=== PATIENT | female | born 1935 | race Caucasian/White ===

== ENCOUNTER 2016-08-09 14:32 | Emergency (ER) | payer MEDICARE, OTHER ==
--- NOTE | 2016-08-09 15:51 | CR ---
CLINICAL HISTORY: 80-year-old hypertensive female with coronary artery disease and low-grade fever. INTERPRETATION: No acute new cardiopulmonary abnormality identified in the interval since November 09 12 exam. Upright AP portable chest film reveals normal cardiac silhouette without alveolar edema or dependent effusion. No new lung mass, hilar lymphadenopathy or focal lobar pneumonia. No atelectasis/collapse.
[2016-08-09 15:52] LABS: CHLORIDE,CL 102 mmol/L (101-111); SODIUM,NA 138 mmol/L (135-145)
[2016-08-09 16:05] VITALS: BP 147/50
--- NOTE | 2016-08-10 01:36 | ER ---
SUBJECTIVE: The patient is an 80-year-old female, who has very vague symptoms, she had felt a little mildly sweaty, she had some mild nausea that has now resolved. Upon arrival and evaluation, she states she really feels quite back to normal. She has no pain. No chest pain. No shortness of breath. No fevers or chills. No bowel or bladder changes. No dysuria, hematuria, melena, BRBPR, constipation, or diarrhea. No abdominal pain or back pain. No headache, syncope, or near syncope. No ENT issues. She states she did not want to even come in, but with her mild symptoms that have now resolved, her family felt she should since she had an ND some years ago and she did not feel that either, and they were concerned maybe she was having some things that she was not fully feeling. Again, the patient now has no complaints and states she just felt it caught under the weather. Denies any recent illness. PAST MEDICAL HISTORY: Significant for CAD, tonsillectomy, hypertension, ND, carotid stents, removal of appendix, cholecystectomy, colonoscopy, hysterectomy, back pain, osteoarthritis, carpal tunnel syndrome, peripheral neuropathy. She wears a brace on her right wrist chronically because of chronic carpal tunnel. CURRENT MEDICATIONS: Include; 1. Aspirin 81 mg p.o. daily. 2. Atenolol 25 mg p.o. at bedtime. 3. Gabapentin 100 mg p.o. b.i.d. 4. Meloxicam 7.5 mg p.o. at bedtime. 5. Nitrostat 0.4 mg p.o. daily. ALLERGIES: She is allergic to alcohol, does not recall why. REVIEW OF SYSTEMS: No substance abuse. She has family around to care for herself. REVIEW OF SYSTEMS: No fevers or chills. She had some vague weakness resolved, some vague nausea is also resolved, felt this attached sweaty for a while that was resolved. No other symptoms. No flu symptoms. No chest pain or shortness of breath. No wheezing. No neck pain. No HEENT issues, headache, syncope, near syncope, vision changes, bowel or bladder changes, bleeding, falls, trauma, bites, stings, or rashes. Please see HPI. OBJECTIVE: Vital Signs: Stable. She is afebrile. Heart rate 67, blood pressure is 159/52, respiratory rate 16, and oxygen is 97% on room air. General: Pleasant, A and O x3. GCS of 15. Very talkative, interactive, smiling, joking, appears in no pain, nontoxic, no distress, very healthy for age. She moves easily. HEENT: She is bright-eyed. Conjunctivae are clear. HEENT exam nonremarkable. Neck: Nonremarkable. Chest: Clear and nontender. CV: RRR. Abdomen: Soft, benign. Back: No CVAT. Nontender. Good pulses at all 4 extremities. Lower Extremities: Nonremarkable. No calf tenderness. She does have a brace on her right wrist, she wears chronically. Vitals are reviewed and the telemetry shows normal sinus rhythm. No acute changes noted. She did have an EKG, it is nonremarkable for acute changes. Normal sinus rhythm. Further lab/studies show a chest x-ray was nonremarkable. CBC showed no anemia, normal white count, normal platelets, normal differential. Her CMP was also completely nonremarkable. Troponin was less than 0.02 and other cardiac enzymes nonremarkable. Liver function tests nonremarkable. Her urine was yellow, slightly cloudy, it did have 250 glucose, did have positive nitrite, negative ketones, negative blood, had negative leukocyte esterase, had many bacteria. It was sent for culture. The family states that her urine is usually normal, so this appears to be a change from that. EMERGENCY ROOM COURSE: She remained stable, pleasant, asymptomatic. I sat down and thoroughly discussed with the patient and her attendant family all of her workup including it was all excellent except that her urine was a little abnormal and we did send it for culture. I did give her multiple options including waiting until culture was back or starting treatment now. She did elect to begin treatment now. Therefore, I did give her a prescription of nitrofurantoin 100 mg one p.o. b.i.d. for 10 days. ASSESSMENT: 1. Urinary tract infection. Urine sent for culture. 2. Nausea, resolved prior to arrival. 3. Coronary artery disease with previous myocardial infarction, workup is nonremarkable at this time. PLAN: Discharge to home in care with her family. Stay in close contact with family or directly with family. Stay hydrated, continue with current medicines, fall precautions. Return for emergent issues, otherwise follow up with PCP. Prescription for nitrofurantoin 100 mg one p.o. b.i.d. x10 days. Please call PCP in 2 days to get the culture results. [facility] /[id number]
--- NOTE | 2016-09-15 09:36 | EKG ---
08/09/2016- JOSEE GREGG - EKG done on an 80-year-old female on 08/09/2016 showed sinus rhythm with heart rate of 68 beats per minute, normal intervals, T-wave changes on inferior leads III and AVF. [facility] /[id number]
== END 2016-08-09 17:44 | disposition home or self-care (01) ==
LOC: DL.ED 14:32
DX: N39.0 Urinary tract infection, site not specified (principal); I25.10 Atherosclerotic heart disease of native coronary artery without angina pectoris; I25.2 Old myocardial infarction; I10 Essential (primary) hypertension; M19.90 Unspecified osteoarthritis, unspecified site; Z98.890 Other specified postprocedural states; Z90.49 Acquired absence of other specified parts of digestive tract
CPT/HCPCS: 36415; 71010; 80053; 81001; 82550; 82553; 84484; 85025; 87086; 87088; 87186; 93005; 93010; 99283; 99285

== ENCOUNTER 2016-08-29 13:08 | Emergency (ER) | payer MEDICARE, OTHER ==
--- NOTE | 2016-08-29 13:10 | EDM.PDOC ---
ED UPPER BACK/NECK PAIN/INJURY - General Chief Complaint: Neck Problem Stated Complaint: NECK PAIN [id number] Time Seen by Provider: 08/29/16 13:10 Source of Information: Reports: Patient, Old records, RN, RN notes reviewed History Limitations: Reports: No limitations - History of Present Illness INITIAL COMMENTS - FREE TEXT/NARRATIVE: Complaining of neck pain and muscle spasms x2 days. Denies injury. Patient states he woke up with symptoms and hasn't got better. She had used ice and heat. Has an hour or so relief after her regular schedule Gabapentin 100mg b.i.d. Patient was concerned about the cause of her pain because her FL more than 5 yeers ago did not cause any chest pain but she did have neck pain. Symptom Onset Date: 08/27/16 Location: Reports: other (neck) Quality: Reports: Ache Severity: severe Associated Symptoms: Reports: Denies symptoms - Related Data Allergies/ADRs: Allergies Allergy/AdvReac Type Severity Reaction Status Date / Time alcohol Allergy Cannot Verified 11/24/15 13:39 Remember Sulfa (Sulfonamide Allergy Cannot Verified 08/29/16 13:30 Antibiotics) Remember tramadol Allergy Airway Verified 08/29/16 13:30 Tightness Home Meds: Home Meds Aspirin 81 mg PO DAILY 08/09/16 [History] Atenolol 25 mg PO BEDTIME 08/09/16 [History] Gabapentin [Gabapentin] 100 mg PO BID 08/09/16 [History] Meloxicam [Mobic] 7.5 mg PO BEDTIME 08/09/16 [History] Nitroglycerin [Nitrostat] 0.4 mg PO DAILY 08/09/16 [History] Past Medical History HEENT History: Reports: Impaired vision Cardiovascular History: Reports: CAD, Hypertension Musculoskeletal History: Reports: Back pain, chronic, Osteoarthritis Neurological History: Reports: Neuropathy, peripheral - Past Surgical History HEENT Surgical History: Reports: Tonsillectomy Cardiovascular Surgical History: Reports: Carotid stents GI Surgical History: Reports: Appendectomy, Cholecystectomy, Colonoscopy Female Surgical History: Reports: Hysterectomy Musculoskeletal Surgical History: Reports: Other (see below) Other Musculoskeletal Surgeries/Procedures:: carpal tunnel Social & Family History - Family History Family Medical History: Noncontributory - Tobacco Use Smoking Status *Q: Never Smoker Second Hand Smoke Exposure: No - Caffeine Use Caffeine Use: Reports: Coffee, Soda, Tea - Recreational Drug Use Recreational Drug Use: No ED ROS GENERAL - Review of Systems Review Of Systems: ROS reveals no pertinent complaints other than HPI. ED EXAM, UPPER BACK/NECK PAIN - Physical Exam Exam: See Below Exam Limited By: No limitations General Appearance: alert, WD/WN, no apparent distress Eye Exam: bilateral eye: normal inspection Ears Exam: normal external exam, normal canal, hearing grossly normal, normal TMs Nose Exam: normal inspection, normal mucousa, no blood Throat/Mouth Exam: Normal inspection Head Exam: atraumatic, normocephalic Neck Exam: other (ROM limited rotation to left due to pain and spasms.) Cardiovascular/Respiratory: regular rate, rhythm, no M/R/G, normal peripheral pulses, no JVD, normal breath sounds, no respiratory distress GI/Abdominal: normal bowel sounds, soft, non tender, no organomegaly, no distention, no abnormal bruit, no mass Back Exam: normal inspection, full range of motion, NT Extremities: other (muscle spasms and tenderness at bilateral trapezius muscles left greater than right. 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, no motor/sensory deficits, alert, normal mood/affect, oriented x 3 Psychiatric: normal affect, normal mood Skin Exam: Normal color, Warm/dry Lymphatic: no adenopathy EKG INTERPRETATION EKG Date: 08/29/16 Time: 13:42 Rhythm: other (sinus rhythm) Rate (beats/min): 68 [place]: LAD-left axis deviation (borderline) P-wave: present QRS: normal ST-T: other (borderline T abnormality) QT: normal Comparison: no change Course - Vital Signs Last Recorded V/S: Last Vital Signs Temp 36.0 C 08/29/16 13:25 Pulse 63 08/29/16 13:25 Resp 16 08/29/16 13:25 BP 167/58 H 08/29/16 13:25 Pulse Ox 98 08/29/16 13:25 - Orders/Labs/Meds Orders: Active Orders 24 hr Category Date Time Status EKG 12 Lead [EKG Documentation Completion] [RC] STAT Care 08/29/16 13:44 Active Labs: Laboratory Tests 08/29/16 08/29/16 Range/Units 13:53 13:53 WBC 8.7 (5.0-10.0) 10^3/uL RBC 4.42 (4.2-5.4) 10^6/uL Hgb 13.6 (12.0-16.0) g/dL Hct 41.1 (37.0-47.0) % MCV 93.0 (80-100) fL MCH 30.8 (27.0-34.0) pg MCHC 33.1 (33.0-35.0) g/dL Plt Count 321 (150-450) 10^3/uL Neut % (Auto) 57.1 (42.2-75.2) % Lymph % (Auto) 26.5 (20.5-50.1) % [place] % (Auto) 12.1 H (2-8) % Eos % (Auto) 3.8 H (1.0-3.0) % Baso % (Auto) 0.5 (0.0-1.0) % Sodium 139 (135-145) mmol/L Potassium 4.9 (3.6-5.0) mmol/L Chloride 102 (101-111) mmol/L Carbon Dioxide 28.0 (21.0-31.0) mmol/L Anion Gap 13.9 BUN 18 (7-18) mg/dL Creatinine 0.6 (0.6-1.3) mg/dL Est Cr Clr Drug Dosing 52.82 mL/min Estimated GFR (MDRD) > 60 BUN/Creatinine Ratio 30.00 Glucose 183 H (74-105) mg/dL Calcium 9.0 (8.4-10.2) mg/dl Total Bilirubin 0.6 (0.2-1.0) mg/dL AST 21 (10-42) IU/L ALT 24 (10-60) IU/L Alkaline Phosphatase 76 (42-121) IU/L Troponin I < 0.02 (0.00-0.02) ng/ml Total Protein 6.5 L (6.7-8.2) g/dl Albumin 3.7 (3.2-5.5) g/dl Globulin 2.8 Albumin/Globulin Ratio 1.32 Meds: Medications Discontinued Medications Generic Name Dose Route Start Last Admin Trade Name Freq PRN Reason Stop Dose Admin Aspirin 324 mg 08/29/16 13:44 08/29/16 14:07 Aspirin PO 08/29/16 13:45 324 mg ONETIME ONE Administration - Radiology Interpretation Free Text/Narrative:: Chest x-ray: Per rad report no acute cardiopulmonary disease. Departure - Departure Time of Disposition: 15:08 Disposition: Home, Self-Care 01 Condition: fair Clinical Impression: Trapezius muscle spasm, Acute neck pain Instructions: Muscle Cramps and Spasms, [id number] Forms: ED Department Discharge Additional Instructions: Increase Gabapentin 100mg. to two tablets 3 times a day until her neck pain and spasms resolve. Deep moist heat to the area of pain. Gentle home massage to the area of muscle spasm. Follow up in 2-3 days with your primary doctor for recheck if not completely improved. - My Orders Last 24 Hours: My Active Orders 08/29/16 13:44 EKG 12 Lead [EKG Documentation Completion] [RC] STAT - Assessment/Plan Last 24 Hours: My Active Orders 08/29/16 13:44 EKG 12 Lead [EKG Documentation Completion] [RC] STAT
[2016-08-29 13:27] VITALS: BP 167/58
[2016-08-29] MEDS ORDERED: Aspirin 81 MG Tab.Chew PO ONE (13:44)
[2016-08-29 14:25] LABS: CHLORIDE,CL 102 mmol/L (101-111); SODIUM,NA 139 mmol/L (135-145)
--- NOTE | 2016-09-20 13:38 | EKG ---
08/29/2016- JOSEE GREGG - This is a standard 12-lead EKG showing normal sinus rhythm with normal DE interval and QRS duration. Normal axis. No ST-T changes. Normal EKG. [facility] /[id number] MTDD
== END 2016-08-29 15:20 | disposition home or self-care (01) ==
LOC: DL.ED 13:08
DX: M54.2 Cervicalgia (principal); M62.838 Other muscle spasm; I25.10 Atherosclerotic heart disease of native coronary artery without angina pectoris; I10 Essential (primary) hypertension; M19.90 Unspecified osteoarthritis, unspecified site; G62.9 Polyneuropathy, unspecified; M54.9 Dorsalgia, unspecified; G89.29 Other chronic pain; Z79.82 Long term (current) use of aspirin; Z79.899 Other long term (current) drug therapy; Z88.6 Allergy status to analgesic agent; Z88.2 Allergy status to sulfonamides; Z91.048 Other nonmedicinal substance allergy status
CPT/HCPCS: 36415; 71010; 80053; 84484; 85025; 93005; 99284; A9270; 93010; 99283

== ENCOUNTER 2017-02-07 20:32 | Inpatient (IN) | payer MEDICARE, OTHER ==
--- NOTE | 2017-02-07 21:27 | EDM.PDOC ---
ED HPI GENERAL MEDICAL PROBLEM - General Chief Complaint: Gastrointestinal Problem Stated Complaint: VOMITING Time Seen by Provider: 02/07/17 21:10 Source of Information: Reports: Patient, Family - History of Present Illness INITIAL COMMENTS - FREE TEXT/NARRATIVE: c/o pain to lower abdomen with vomiting and headache. Started yesterday with vomiting though out night, today just gagging. Similar but " different" to divertic episodes , nothing to drink today except sips . No urinary or respiratory c/o. Onset: Today Duration: Day(s): Associated Symptoms: Reports: Loss of Appetite, Nausea/Vomiting. Denies: Chest Pain, Fever/Chills, Weakness Headache Pain Score (Numeric/FACES): 8 - Related Data Allergies Allergy/AdvReac Type Severity Reaction Status Date / Time alcohol Allergy Cannot Verified 02/07/17 20:39 Remember Sulfa (Sulfonamide Allergy Cannot Verified 02/07/17 20:39 Antibiotics) Remember tramadol Allergy Airway Verified 02/07/17 20:39 Tightness Home Meds: Home Meds Aspirin 81 mg PO DAILY 08/09/16 [History] Atenolol 25 mg PO BEDTIME 08/09/16 [History] Gabapentin [Gabapentin] 100 mg PO BID 08/09/16 [History] Meloxicam [Mobic] 7.5 mg PO ASDIRECTED 08/09/16 [History] Nitroglycerin [Nitrostat] 0.4 mg PO DAILY 08/09/16 [History] Past Medical History HEENT History: Reports: Impaired Vision Cardiovascular History: Reports: Hypertension, Stents Gastrointestinal History: Reports: Diverticulosis Musculoskeletal History: Reports: Back Pain, Chronic, Osteoarthritis Neurological History: Reports: Neuropathy, Peripheral - Infectious Disease History Infectious Disease History: Reports: Shingles - Past Surgical History HEENT Surgical History: Reports: Tonsillectomy Cardiovascular Surgical History: Reports: Carotid Stents GI Surgical History: Reports: Appendectomy, Cholecystectomy, Colonoscopy Female Surgical History: Reports: Hysterectomy Musculoskeletal Surgical History: Reports: Carpal Tunnel, Other (See Below) Social & Family History - Family History Family Medical History: Noncontributory - Tobacco Use Smoking Status *Q: Never Smoker Second Hand Smoke Exposure: No - Caffeine Use Caffeine Use: Reports: Coffee, Soda, Tea - Recreational Drug Use Recreational Drug Use: No ED ROS GENERAL - Review of Systems Review Of Systems: See Below Constitutional: Reports: Malaise. Denies: Fever, Chills HEENT: Reports: No Symptoms, Glasses Respiratory: Reports: No Symptoms Cardiovascular: Reports: No Symptoms GI/Abdominal: Reports: Abdominal Pain (lower discomfort yesterday), Nausea, Vomiting (too many times to count yesterday, continued through night. gaggy today after any sip of liquid). Denies: Bloody Stool, Diarrhea : Reports: No Symptoms. Denies: Frequency, Urinary Retention Musculoskeletal: Reports: No Symptoms Skin: Reports: No Symptoms Neurological: Reports: Headache. Denies: Tremors, Trouble Speaking, Difficulty Walking ED EXAM, GI/ABD - Physical Exam Exam: See Below Exam Limited By: No Limitations General Appearance: Alert, Mild Distress Eyes: Bilateral: EOMI Ears: Normal External Exam Nose: Normal Inspection Throat/Mouth: Normal Inspection Head: Atraumatic, Normocephalic Neck: Normal Inspection, Supple, Full Range of Motion Respiratory/Chest: No Respiratory Distress, Lungs Clear, Normal Breath Sounds Cardiovascular: Normal Peripheral Pulses, Regular Rate, Rhythm GI/Abdominal Exam: Abnormal Bowel Sounds (active LUQ hypo active lower, no distension) Neurological: Alert, Oriented, Normal Cognition, Normal Gait, No Motor/Sensory Deficits Psychiatric: Normal Affect, Normal Mood Skin Exam: Warm, Dry, Intact, Normal Color, No Rash Course - Vital Signs Last Recorded V/S: Last Vital Signs Temp 97.6 F 02/08/17 01:14 Pulse 68 02/08/17 01:14 Resp 14 02/08/17 01:14 BP 115/49 L 02/08/17 01:14 Pulse Ox 97 02/08/17 01:14 - Orders/Labs/Meds Orders: Active Orders 24 hr Category Date Time Status CULTURE BLOOD [BC] Stat Lab 02/07/17 22:15 Results CULTURE BLOOD [BC] Stat Lab 02/07/17 22:20 Received CULTURE URINE [RM] Stat Lab 02/07/17 22:01 Received Aspirin Med 02/08/17 09:00 Active 81 mg PO DAILY Atenolol [Tenormin] Med 02/08/17 21:00 Active 25 mg PO BEDTIME Gabapentin [Neurontin] Med 02/08/17 09:00 Active 100 mg PO BID Sodium Chloride 0.9% [Normal Saline] 1,000 ml Med 02/08/17 00:15 Active IV ASDIRECTED Blood Culture x2 Reflex Set [OM.PC] Stat Oth 02/07/17 21:53 Ordered Medication Orders Acetaminophen (Tylenol) 650 mg PO Q4H PRN PRN Reason: Pain (Mild 1-3)/fever Aspirin (Aspirin) 81 mg PO DAILY [facility] Atenolol (Tenormin) 25 mg PO BEDTIME [facility] Gabapentin (Neurontin) 100 mg PO BID [facility] Heparin Sodium (Porcine) (Heparin Sodium) 5,000 units SUBCUT Q12H [facility] Sodium Chloride (Normal Saline) 1,000 mls @ 125 mls/hr IV ASDIRECTED [facility] Last Admin: 02/08/17 00:09 Dose: 125 mls/hr Levofloxacin/Dextrose 500 mg/ (Premix) 100 mls @ 100 mls/hr IV Q24H [facility] Sodium Chloride (Normal Saline) 1,000 mls @ 75 mls/hr IV ASDIRECTED [facility] Stop: 02/09/17 01:16 Insulin Aspart (Novolog) 0 unit SUBCUT QIDACANDBED [facility] PRN Reason: Protocol Morphine Sulfate (Morphine) 2 mg IVPUSH Q4H PRN PRN Reason: Pain (severe 7-10) Ondansetron HCl (Zofran) 4 mg IVPUSH Q6H PRN PRN Reason: Nausea/Vomiting Pantoprazole Sodium (Protonix Iv) 40 mg IVPUSH Q24H [facility] Last Admin: 02/08/17 02:29 Dose: 40 mg Promethazine HCl (Phenergan) 6.25 mg IM Q6H PRN PRN Reason: Nausea/Vomiting Sodium Chloride ([place] Nasal [place]) 0 ml CANELO Q2H PRN PRN Reason: Nasal congestion Labs: Laboratory Tests 02/07/17 02/07/17 02/07/17 Range/Units 20:55 20:55 22:10 WBC 15.0 H (5.0-10.0) 10^3/uL RBC 4.79 (4.2-5.4) 10^6/uL Hgb 14.3 (12.0-16.0) g/dL Hct 44.4 (37.0-47.0) % MCV 92.7 (80-100) fL MCH 29.9 (27.0-34.0) pg MCHC 32.2 L (33.0-35.0) g/dL Plt Count 405 (150-450) 10^3/uL Neut % (Auto) 74.8 (42.2-75.2) % Lymph % (Auto) 15.5 L (20.5-50.1) % [place] % (Auto) 9.0 H (2-8) % Eos % (Auto) 0.5 L (1.0-3.0) % Baso % (Auto) 0.2 (0.0-1.0) % Sodium 136 (135-145) mmol/L Potassium 3.8 (3.6-5.0) mmol/L Chloride 97 L (101-111) mmol/L Carbon Dioxide 26.0 (21.0-31.0) mmol/L Anion Gap 16.8 BUN 15 (7-18) mg/dL Creatinine 0.5 L (0.6-1.3) mg/dL Est Cr Clr Drug Dosing 62.31 mL/min Estimated GFR (MDRD) > 60 BUN/Creatinine Ratio 30.00 Glucose 222 H (74-105) mg/dL Lactic Acid (0.5-2.2) mmol/L Calcium 9.1 (8.4-10.2) mg/dl Total Bilirubin 1.3 H (0.2-1.0) mg/dL AST 24 (10-42) IU/L ALT 24 (10-60) IU/L Alkaline Phosphatase 75 (42-121) IU/L Troponin I < 0.02 (0.00-0.02) ng/ml Total Protein 7.0 (6.7-8.2) g/dl Albumin 3.9 (3.2-5.5) g/dl Globulin 3.1 Albumin/Globulin Ratio 1.26 Amylase 92 (28-100) U/L Lipase 27 (22-51) U/L Urine Color Yellow (YELLOW) Urine Appearance Slightly cloudy (CLEAR) Urine pH 5.5 (5.0-9.0) Ur Specific [place] <= 1.005 (1.005-1.030) Urine Protein Negative (NEGATIVE) Urine Glucose (UA) 100 H (NEGATIVE) Urine Ketones 15 H (NEGATIVE) Urine Occult Blood Trace-intact H (NEGATIVE) Urine Nitrite Positive H (NEGATIVE) Urine Bilirubin Negative (NEGATIVE) Urine Urobilinogen 0.2 (0.2-1.0) mg/dL Ur Leukocyte Esterase Negative (NEGATIVE) Urine RBC 0-5 /HPF Urine WBC 0-5 (0-5/HPF) /HPF Ur Epithelial Cells Few /HPF Urine Bacteria Many H (0-FEW/HPF) /HPF 02/07/17 Range/Units 22:15 WBC (5.0-10.0) 10^3/uL RBC (4.2-5.4) 10^6/uL Hgb (12.0-16.0) g/dL Hct (37.0-47.0) % MCV (80-100) fL MCH (27.0-34.0) pg MCHC (33.0-35.0) g/dL Plt Count (150-450) 10^3/uL Neut % (Auto) (42.2-75.2) % Lymph % (Auto) (20.5-50.1) % [place] % (Auto) (2-8) % Eos % (Auto) (1.0-3.0) % Baso % (Auto) (0.0-1.0) % Sodium (135-145) mmol/L Potassium (3.6-5.0) mmol/L Chloride (101-111) mmol/L Carbon Dioxide (21.0-31.0) mmol/L Anion Gap BUN (7-18) mg/dL Creatinine (0.6-1.3) mg/dL Est Cr Clr Drug Dosing mL/min Estimated GFR (MDRD) BUN/Creatinine Ratio Glucose (74-105) mg/dL Lactic Acid 1.8 (0.5-2.2) mmol/L Calcium (8.4-10.2) mg/dl Total Bilirubin (0.2-1.0) mg/dL AST (10-42) IU/L ALT (10-60) IU/L Alkaline Phosphatase (42-121) IU/L Troponin I (0.00-0.02) ng/ml Total Protein (6.7-8.2) g/dl Albumin (3.2-5.5) g/dl Globulin Albumin/Globulin Ratio Amylase (28-100) U/L Lipase (22-51) U/L Urine Color (YELLOW) Urine Appearance (CLEAR) Urine pH (5.0-9.0) Ur Specific [place] (1.005-1.030) Urine Protein (NEGATIVE) Urine Glucose (UA) (NEGATIVE) Urine Ketones (NEGATIVE) Urine Occult Blood (NEGATIVE) Urine Nitrite (NEGATIVE) Urine Bilirubin (NEGATIVE) Urine Urobilinogen (0.2-1.0) mg/dL Ur Leukocyte Esterase (NEGATIVE) Urine RBC /HPF Urine WBC (0-5/HPF) /HPF Ur Epithelial Cells /HPF Urine Bacteria (0-FEW/HPF) /HPF Meds: Medications Generic Name Dose Route Start Last Admin Trade Name Freq PRN Reason Stop Dose Admin Acetaminophen 650 mg 02/08/17 01:14 Tylenol PO Q4H PRN Pain (Mild 1-3)/fever Aspirin 81 mg 02/08/17 09:00 Aspirin PO DAILY [facility] Atenolol 25 mg 02/08/17 21:00 Tenormin PO BEDTIME [facility] Gabapentin 100 mg 02/08/17 09:00 Neurontin PO BID [facility] Heparin Sodium (Porcine) 5,000 units 02/08/17 09:00 Heparin Sodium SUBCUT Q12H [facility] Sodium Chloride 1,000 mls @ 125 mls/hr 02/08/17 00:15 02/08/17 00:09 Normal Saline IV 125 mls/hr ASDIRECTED [facility] Administration Levofloxacin/Dextrose 500 mg/ 100 mls @ 100 mls/hr 02/08/17 01:30 Premix IV Q24H [facility] Sodium Chloride 1,000 mls @ 75 mls/hr 02/08/17 01:15 Normal Saline IV 02/09/17 01:16 ASDIRECTED [facility] Insulin Aspart 0 unit 02/08/17 07:00 Novolog SUBCUT QIDACANDBED [facility] Protocol Morphine Sulfate 2 mg 02/08/17 01:14 Morphine IVPUSH Q4H PRN Pain (severe 7-10) Ondansetron HCl 4 mg 02/08/17 01:14 Zofran IVPUSH Q6H PRN Nausea/Vomiting Pantoprazole Sodium 40 mg 02/08/17 01:15 02/08/17 02:29 Protonix Iv IVPUSH 40 mg Q24H [facility] Administration Promethazine HCl 6.25 mg 02/08/17 01:14 Phenergan IM Q6H PRN Nausea/Vomiting Sodium Chloride 0 ml 02/08/17 01:36 [place] Nasal [place] CANELO Q2H PRN Nasal congestion Discontinued Medications Generic Name Dose Route Start Last Admin Trade Name Freq PRN Reason Stop Dose Admin Sodium Chloride 1,000 mls @ 500 mls/hr 02/07/17 21:30 02/07/17 21:35 Normal Saline IV 02/07/17 23:29 500 mls/hr .BOLUS ONE Administration Levofloxacin/Dextrose 500 mg/ 100 mls @ 100 mls/hr 02/08/17 01:00 02/08/17 02 :29 Premix IV 02/08/17 01:59 100 mls/hr ONETIME ONE Administration Iopamidol 75 ml 02/07/17 22:00 02/07/17 22:51 Isovue-300 (61%) IVPUSH 02/07/17 22:01 75 ml ONETIME ONE Administration - Radiology Interpretation Free Text/Narrative:: CT abdomen lower obstruction vs ileus with probable entercolitis, diverticulosis without sx of diverticulitis. - Re-Assessments/Exams Free Text/Narrative Re-Assessment/Exam: 02/08/17 00:37 Nausea improved and headache resolved following iVF administration. Departure - Departure Time of Disposition: 00:30 Disposition: Admitted As Inpatient 65 Condition: Fair Clinical Impression: Mild dehydration Bowel obstruction Qualifiers: Intestinal obstruction type: unspecified Qualified Code(s): K56.60 - Unspecified intestinal obstruction - Discharge Information - My Orders Last 24 Hours: My Active Orders 02/07/17 21:53 Blood Culture x2 Reflex Set [OM.PC] Stat 02/07/17 22:01 CULTURE URINE [RM] Stat 02/07/17 22:15 CULTURE BLOOD [BC] Stat 02/07/17 22:20 CULTURE BLOOD [BC] Stat 02/08/17 00:15 Sodium Chloride 0.9% [Normal Saline] 1,000 ml IV ASDIRECTED - Assessment/Plan Last 24 Hours: My Active Orders 02/07/17 21:53 Blood Culture x2 Reflex Set [OM.PC] Stat 02/07/17 22:01 CULTURE URINE [RM] Stat 02/07/17 22:15 CULTURE BLOOD [BC] Stat 02/07/17 22:20 CULTURE BLOOD [BC] Stat 02/08/17 00:15 Sodium Chloride 0.9% [Normal Saline] 1,000 ml IV ASDIRECTED
[2017-02-07] MEDS ORDERED: Sodium Chloride 0.9% 1,000 ML IV ONE (21:30)
[2017-02-07 21:47] LABS: CHLORIDE,CL 97 mmol/L (101-111); SODIUM,NA 136 mmol/L (135-145)
[2017-02-07] MEDS ORDERED: Iopamidol 612 MG/ML 75 ML Bottle IVPUSH ONE (22:00)
[2017-02-08] MEDS ORDERED: Sodium Chloride 0.9% 1,000 ML IV SCH (00:15)
[2017-02-08] MEDS ORDERED: Levofloxacin/Dextrose 5%-Water 500 MG in Premix Bag 1 BAG IV ONE (01:00)
[2017-02-08] MEDS ORDERED: Acetaminophen 325 MG Tab PO PRN (01:14)
[2017-02-08] MEDS ORDERED: Morphine 2 MG/ML Syringe IVPUSH PRN (01:14)
[2017-02-08] MEDS ORDERED: Promethazine 25 MG/ML SDV IM PRN (01:14)
[2017-02-08] MEDS ORDERED: Ondansetron 4 MG/2 ML SDV IVPUSH PRN (01:14)
[2017-02-08] MEDS ORDERED: Levofloxacin/Dextrose 5%-Water 500 MG in Premix Bag 1 BAG IV SCH (01:30)
--- NOTE | 2017-02-08 01:32 | PCM.HP ---
H&P History of Present Illness - General Date of Service: 02/08/17 Admit Problem/Dx: Admission Diagnosis/Problem Admission Diagnosis/Problem UTI, Urinary tract infectious disease Source of Information: Patient, Family - History of Present Illness Initial Comments - Free Text/Narative: 81-year-old female with past medical history of coronary artery disease status post stent, diabetes mellitus diet controlled present to the emergency room for having abdominal pain, nausea, vomiting, feeling tired, sinus congestion since Tuesday afternoon-02/06/17. Patient stated that on Tuesday she was at [employer] and had eaten buffets there and at noon she started having generalized abdominal pain. She describes the pain as cramping, intermittent, nothing makes it worse or better, no radiation, rated 10/10 on pain scale yesterday but better today. She had multiple vomiting yesterday. Today she does not have any emesis but she has been having constant nausea. She has not been eating due to the nausea. Overall she's feeling better today but still not feeling well. She started feeling feverish today. She states she had sinus congestion and headache for the last 2 days but no sore throat. She thinks it's allergy. Patient checked her temperature at home and was 99.4. Patient denies chest pain, shortness breath, cough, back pain, urinary symptoms, dysuria, urinary frequency, diarrhea, blood in the stool, black stool. Patient had regular bowel movement today and is passing gas. In the emergency room hair UA reported positive nitrate and many bacteria but only 0-5 WBC. WBC 15 K. No left shift. "CT abdomen reported multiple dilated fluid filled small bowel loops. The distal ileum appears decompressed. Additionally there is some mild circumferential mucosal thickening of the sigmoid colon. Findings likely consistent with enterocolitis and low-grade obstruction versus ileus. There is free fluid in the pelvis." Headache Pain Score (Numeric/FACES): 8 - Related Data Allergies/Adverse Reactions: Allergies Allergy/AdvReac Type Severity Reaction Status Date / Time alcohol Allergy Cannot Verified 02/07/17 20:39 Remember Sulfa (Sulfonamide Allergy Cannot Verified 02/07/17 20:39 Antibiotics) Remember tramadol Allergy Airway Verified 02/07/17 20:39 Tightness Home Medications: Home Meds Aspirin 81 mg PO DAILY 08/09/16 [History] Atenolol 25 mg PO BEDTIME 08/09/16 [History] Gabapentin [Gabapentin] 100 mg PO BID 08/09/16 [History] Meloxicam [Mobic] 7.5 mg PO ASDIRECTED 08/09/16 [History] Nitroglycerin [Nitrostat] 0.4 mg PO DAILY 08/09/16 [History] Past Medical History HEENT History: Reports: Impaired Vision Cardiovascular History: Reports: Hypertension, Stents Gastrointestinal History: Reports: Diverticulosis Musculoskeletal History: Reports: Back Pain, Chronic, Osteoarthritis Neurological History: Reports: Neuropathy, Peripheral - Infectious Disease History Infectious Disease History: Reports: Shingles - Past Surgical History HEENT Surgical History: Reports: Tonsillectomy Cardiovascular Surgical History: Reports: Carotid Stents GI Surgical History: Reports: Appendectomy, Cholecystectomy, Colonoscopy Female Surgical History: Reports: Hysterectomy Musculoskeletal Surgical History: Reports: Carpal Tunnel, Other (See Below) Social & Family History - Family History Family Medical History: Noncontributory - Tobacco Use Smoking Status *Q: Never Smoker Second Hand Smoke Exposure: No - Caffeine Use Caffeine Use: Reports: Coffee, Soda, Tea - Recreational Drug Use Recreational Drug Use: No H&P Review of Systems - Review of Systems: Review Of Systems: See Below General: Reports: Weakness, Decreased Appetite. Denies: Diaphoresis, Weight Loss, Weight Gain HEENT: Reports: Headaches. Denies: Dysphasia, Eye Pain, Sore Throat, Vertigo, Visual Changes Pulmonary: Reports: No Symptoms Cardiovascular: Reports: No Symptoms Gastrointestinal: Denies: Black Stool, Bloody Stool, Constipation, Diarrhea, Difficulty Swallowing, Distension Genitourinary: Reports: No Symptoms Musculoskeletal: Reports: No Symptoms Skin: Reports: No Symptoms Psychiatric: Reports: No Symptoms Neurological: Reports: No Symptoms. Denies: Dizziness Hematologic/Lymphatic: Reports: No Symptoms Immunologic: Reports: No Symptoms Exam - Exam Exam: See Below - Vital Signs Vital Signs: Last Vital Signs Temp 36.8 C 02/07/17 20:36 Pulse 61 02/08/17 00:29 Resp 18 02/08/17 00:29 BP 139/45 L 02/08/17 00:29 Pulse Ox 99 02/08/17 00:29 Weight: 50.848 kg - Exam General: Alert, Oriented, Cooperative, Mild Distress (She has ill-looking). No : Sedated, Lethargic, Obtunded HEENT: Conjunctiva Clear, EACs Clear, EOMI, Hearing Intact, Mucosa Moist & [place] , Nares Patent, Normal Nasal Septum, Posterior Pharynx Clear, Pupils Equal, Pupils Reactive, TMs Clear Neck: Supple, Trachea Midline Lungs: Clear to Auscultation, Normal Respiratory Effort Cardiovascular: Regular Rate, Regular Rhythm GI/Abdominal Exam: Normal Bowel Sounds, Soft, No Organomegaly, No Distention, No Abnormal Bruit, No Mass, Pelvis Stable, Tender (Generalized, mild to moderate ). No: Distended, Guarding, Rigid, Rebound, Abnormal Bowel Sounds, Hernia, Mass , Hepatomegaly (Female) Exam: Deferred Rectal (Female) Exam: Deferred Back Exam: Normal Inspection, Full Range of Motion. No: CVA Tenderness (L), CVA Tenderness (R) Extremities: Normal Inspection, Normal Range of Motion, Non-Tender, No Pedal Edema, Normal Capillary Refill Skin: Warm, Dry, Intact Neurological: Cranial Nerves Intact, Reflexes Equal Bilateral Neuro Extensive - Mental Status: Alert, Oriented x3, Normal Mood/Affect Neuro Extensive - Motor, Sensory, Reflexes: CN II-XII Intact Psychiatric: Alert, Normal Affect, Normal Mood - Patient Data Result Diagrams: 02/07/17 20:55 02/07/17 20:55 *Q Meaningful Use (ADM) - VTE *Q VTE Criteria *Q: - Stroke *Q Stroke Criteria *Q: - AMI *Q AMI Criteria *Q: - Problem List (1) Urinary tract infection SNOMED Code(s): 51657155 ICD Code: N39.0 - URINARY TRACT INFECTION, SITE NOT SPECIFIED Status: Acute Current Visit: Yes (2) Dehydration SNOMED Code(s): 95310699 ICD Code: E86.0 - DEHYDRATION Status: Acute Current Visit: Yes (3) Nausea and vomiting SNOMED Code(s): 08245789 ICD Code: R11.2 - NAUSEA WITH VOMITING, UNSPECIFIED Status: Acute Current Visit: Yes (4) Sinus congestion SNOMED Code(s): 53306400 ICD Code: R09.81 - NASAL CONGESTION Status: Acute Current Visit: Yes (5) Coronary artery disease SNOMED Code(s): 90186274 ICD Code: I25.10 - ATHSCL HEART DISEASE OF [place] CORONARY ARTERY W/O ANG PCTRS Status: Chronic Current Visit: Yes (6) Abdominal pain SNOMED Code(s): 34938789 ICD Code: R10.9 - UNSPECIFIED ABDOMINAL PAIN Status: Acute Current Visit : Yes Problem List Initiated/Reviewed/Updated: Yes Orders Last 24hrs: Active Orders 24 hr Category Date Time Status Patient Status [ADT] Routine ADT 02/08/17 01:14 Ordered Antiembolic Devices [RC] PER UNIT ROUTINE Care 02/08/17 01:18 Ordered Blood Glucose Check, Bedside [RC] QIDACANDBED Care 02/08/17 01:14 Ordered Height and Weight [RC] DAILY Care 02/08/17 01:14 Ordered Intake and Output [RC] Q6H Care 02/08/17 01:16 Ordered Notify Provider Vital Signs [RC] ASDIRECTED Care 02/08/17 01:17 Ordered Oxygen Therapy [RC] PRN Care 02/08/17 01:14 Ordered Up ad Michelle [RC] ASDIRECTED Care 02/08/17 01:14 Ordered VTE/DVT Education [RC] PER UNIT ROUTINE Care 02/08/17 01:14 Ordered Vital Signs [RC] Q4H Care 02/08/17 01:14 Ordered Nothing per Oral Now Diet [DIET] Diet 02/08/17 Breakfast Ordered C-REACTIVE PROTEIN [REF] Routine Lab 02/08/17 05:11 Ordered CBC WITH AUTO DIFF [HEME] AM Lab 02/08/17 05:11 Ordered COMPREHENSIVE METABOLIC PN,CMP [CHEM] AM Lab 02/08/17 05:11 Ordered MAGNESIUM [CHEM] AM Lab 02/08/17 05:11 Ordered PHOSPHORUS [CHEM] AM Lab 02/08/17 05:11 Ordered Acetaminophen [Tylenol] Med 02/08/17 01:14 Ordered 650 mg PO Q4H PRN Aspirin Med 02/08/17 09:00 Ordered 81 mg PO DAILY Atenolol [Tenormin] Med 02/08/17 21:00 Ordered 25 mg PO BEDTIME Gabapentin [Neurontin] Med 02/08/17 09:00 Ordered 100 mg PO BID Heparin Sodium Med 02/08/17 09:00 Ordered 5,000 units SUBCUT Q12H Insulin Aspart [NovoLOG] Med 02/08/17 07:00 Ordered See Protocol SUBCUT QIDACANDBED Levofloxacin/Dextrose 5%-Water [Levaquin in D5W 500 MG/ Med 02/08/17 01:30 Ordered 100 ML] 500 mg Premix Bag 1 bag IV Q24H Morphine Med 02/08/17 01:14 Ordered 2 mg IVPUSH Q4H PRN Ondansetron [Zofran] Med 02/08/17 01:14 Ordered 4 mg IVPUSH Q6H PRN Pantoprazole [ProTONIX IV] Med 02/08/17 01:15 Ordered 40 mg IVPUSH Q24H Antiembolic Hose [OM.PC] Per Unit Routine Oth 02/08/17 01:18 Ordered Resuscitation Status Routine Resus Stat 02/08/17 01:14 Ordered Medication Orders Sodium Chloride (Normal Saline) 1,000 mls @ 125 mls/hr IV ASDIRECTED [facility]OU[facility] Last Admin: 02/08/17 00:09 Dose: 125 mls/hr Assessment/Plan Comment:: Assessment and plan Abdominal pain, generalized Most likely from Complicated urinary tract infection with possible peylonephritis. However, I cannot exclude enterocolitis or possible small bowel obstruction. -Patient received 1 L of normal saline as a bolus. Second liter of normal saline at 125 mL per hour will be running and after that will decrease it to 75 mL per hour -Levaquin 500 milligrams IV daily -Nothing by mouth for diet except meds and sips -Awaiting urine culture and blood culture results Nausea and vomiting Possibly from UTI or gastroenteritis versus enterocolitis Treatment as above Zofran and Phenergan as needed Dehydration, due to vomiting and decreased oral intake -IV fluid as above -I and Os Sinus congestion Saline nasal spray as needed Diabetes mellitus, diet controlled Blood glucose is elevated on admission Sliding-scale insulin, low-dose protocol ordered History of coronary artery disease status post stent Continue aspirin and atenolol Patient stated that she has appointment with cardiology tomorrow for medication refill and routine checkup. She was advised to call her forestry professor office and reschedule that appointment as soon as possible. She and her daughters were advised to remind us at time of discharge to refill her atenolol enough until she sees her forestry professor Heparin for DVT prophylaxis She is full code
[2017-02-08] MEDS ORDERED: Sodium Chloride 0.65% Nasal Spray 45 ML Bottle NAS PRN (01:36)
[2017-02-08] MEDS: Pantoprazole 40 MG Vial IVPUSH SCH (02:29)
[2017-02-08 07:12] LABS: CHLORIDE,CL 109 mmol/L (101-111); SODIUM,NA 142 mmol/L (135-145)
[2017-02-08] MEDS: Insulin Aspart 100 Units/ML 3 ML Pen SUBCUT SCH ×4 (08:25→21:01)
[2017-02-08] MEDS: Sodium Chloride 0.9% 1,000 ML IV SCH (09:08)
[2017-02-08] MEDS: Gabapentin 100 MG Cap PO SCH ×2 (09:13→21:00)
[2017-02-08] MEDS: Heparin Sodium 5,000 Units/ML Vial SUBCUT SCH ×2 (09:13→20:56)
[2017-02-08] MEDS: Aspirin 81 MG Tab.Chew PO SCH (09:13)
--- NOTE | 2017-02-08 13:20 | PCM.SN ---
- Free Text/Narrative Note: Patient is feeling near much better according to her. Her energy is better but still not back to normal. Today she denies abdominal pain, vomiting, nausea, shortness breath, chest pain, diarrhea, any other symptoms or concern. She stated her headache and sinus congestion resolved. She had small amount of food this morning and did not bother her much. Her exam is normal except looking weak. I will continue IV Levaquin and changed to 250 mg daily. Decrease IV fluid from 75 mL to 50 mL per hour. Clear liquid diet. Otherwise continue the rest of management
[2017-02-08] MEDS ORDERED: Levofloxacin/Dextrose 5%-Water 250 MG/50 ML Premix Bag IV SCH (13:30)
[2017-02-08] MEDS: Atenolol 25 MG Tab PO SCH (20:59)
[2017-02-08] MEDS ORDERED: Levofloxacin/Dextrose 5%-Water 250 MG in Premix Bag 1 BAG IV SCH (21:00)
[2017-02-09] MEDS: Pantoprazole 40 MG Vial IVPUSH SCH (01:13)
[2017-02-09] MEDS: Sodium Chloride 0.9% 1,000 ML IV SCH (03:33)
[2017-02-09 06:54] LABS: CHLORIDE,CL 109 mmol/L (101-111); SODIUM,NA 145 mmol/L (135-145)
[2017-02-09] MEDS: Insulin Aspart 100 Units/ML 3 ML Pen SUBCUT SCH ×4 (07:47→21:10)
[2017-02-09] MEDS: Heparin Sodium 5,000 Units/ML Vial SUBCUT SCH ×2 (08:42→20:23)
[2017-02-09] MEDS: Gabapentin 100 MG Cap PO SCH ×2 (08:42→20:24)
[2017-02-09] MEDS: Aspirin 81 MG Tab.Chew PO SCH (08:42)
--- NOTE | 2017-02-09 12:29 | PCM.PN ---
- General Info Date of Service: 02/09/17 Admission Dx/Problem (Free Text): Admission Diagnosis/Problem Admission Diagnosis/Problem UTI, Urinary tract infectious disease Subjective Update: Patient stated that she is feeling better however she is still feeling tired and having some abdominal discomfort. She started having loose stool this morning. She has 3 episodes but no blood or mucus in the stool. She denies fever , chills, nausea, vomiting, urinary symptoms, shortness breath, chest pain, upper surgery symptoms. - Patient Data Vitals - Most Recent: Last Vital Signs Temp 36.9 C 02/09/17 11:00 Pulse 53 L 02/09/17 11:00 Resp 20 02/09/17 11:00 BP 145/42 H 02/09/17 11:00 Pulse Ox 97 02/09/17 11:00 Weight - Most Recent: 54.975 kg I&O - Last 24 Hours: Intake & Output 02/08/17 02/09/17 02/09/17 22:59 06:59 14:59 Intake Total 250 1004 700 Balance 250 1004 700 Lab Results Last 24 Hours: Laboratory Results - last 24 hr 02/08/17 02/08/17 02/09/17 Range/Units 16:56 20:45 06:10 WBC 6.2 (5.0-10.0) 10^3/uL RBC 4.00 L (4.2-5.4) 10^6/uL Hgb 12.0 (12.0-16.0) g/dL Hct 37.6 (37.0-47.0) % MCV 94.0 (80-100) fL MCH 30.0 (27.0-34.0) pg MCHC 31.9 L (33.0-35.0) g/dL Plt Count 324 (150-450) 10^3/uL Neut % (Auto) 47.9 (42.2-75.2) % Lymph % (Auto) 33.8 (20.5-50.1) % [place] % (Auto) 12.4 H (2-8) % Eos % (Auto) 5.3 H (1.0-3.0) % Baso % (Auto) 0.6 (0.0-1.0) % Sodium (135-145) mmol/L Potassium (3.6-5.0) mmol/L Chloride (101-111) mmol/L Carbon Dioxide (21.0-31.0) mmol/L Anion Gap BUN (7-18) mg/dL Creatinine (0.6-1.3) mg/dL Est Cr Clr Drug Dosing mL/min Estimated GFR (MDRD) Glucose (74-105) mg/dL POC Glucose 110 141 H (83-110) mg/dl Calcium (8.4-10.2) mg/dl 02/09/17 02/09/17 02/09/17 Range/Units 06:10 07:36 10:53 WBC (5.0-10.0) 10^3/uL RBC (4.2-5.4) 10^6/uL Hgb (12.0-16.0) g/dL Hct (37.0-47.0) % MCV (80-100) fL MCH (27.0-34.0) pg MCHC (33.0-35.0) g/dL Plt Count (150-450) 10^3/uL Neut % (Auto) (42.2-75.2) % Lymph % (Auto) (20.5-50.1) % [place] % (Auto) (2-8) % Eos % (Auto) (1.0-3.0) % Baso % (Auto) (0.0-1.0) % Sodium 145 (135-145) mmol/L Potassium 3.7 (3.6-5.0) mmol/L Chloride 109 (101-111) mmol/L Carbon Dioxide 25.0 (21.0-31.0) mmol/L Anion Gap 14.7 BUN 8 (7-18) mg/dL Creatinine 0.6 (0.6-1.3) mg/dL Est Cr Clr Drug Dosing 51.92 mL/min Estimated GFR (MDRD) > 60 Glucose 109 H (74-105) mg/dL POC Glucose 109 112 H (83-110) mg/dl Calcium 8.4 (8.4-10.2) mg/dl Med Orders - Current: Current Medications Acetaminophen (Tylenol) 650 mg PO Q4H PRN PRN Reason: Pain (Mild 1-3)/fever Aspirin (Aspirin) 81 mg PO DAILY [facility]OUD Last Admin: 02/09/17 08:42 Dose: 81 mg Atenolol (Tenormin) 25 mg PO BEDTIME [facility] Last Admin: 02/08/17 20:59 Dose: 25 mg Gabapentin (Neurontin) 100 mg PO BID [facility] Last Admin: 02/09/17 08:42 Dose: 100 mg Heparin Sodium (Porcine) (Heparin Sodium) 5,000 units SUBCUT Q12H [facility] Last Admin: 02/09/17 08:42 Dose: 5,000 units Sodium Chloride (Normal Saline) 1,000 mls @ 35 mls/hr IV ASDIRECTED [facility] Stop: 02/09/17 18:00 Last Admin: 02/09/17 03:33 Dose: 50 mls/hr Piperacillin Sod/Tazobactam (Sod 3.375 gm/ Sodium Chloride) 100 mls @ 200 mls/ hr IV Q8H [facility] Metronidazole 500 mg/ Premix 100 mls @ 100 mls/hr IV Q8H [facility] Insulin Aspart (Novolog) 0 unit SUBCUT QIDACANDBED [facility] PRN Reason: Protocol Last Admin: 02/09/17 11:33 Dose: Not Given Morphine Sulfate (Morphine) 2 mg IVPUSH Q4H PRN PRN Reason: Pain (severe 7-10) Ondansetron HCl (Zofran) 4 mg IVPUSH Q6H PRN PRN Reason: Nausea/Vomiting Pantoprazole Sodium (Protonix Iv) 40 mg IVPUSH Q24H [facility] Last Admin: 02/09/17 01:13 Dose: 40 mg Promethazine HCl (Phenergan) 6.25 mg IM Q6H PRN PRN Reason: Nausea/Vomiting Sodium Chloride ([place]) 0 ml CANELO Q2H PRN PRN Reason: Nasal congestion Discontinued Medications Sodium Chloride (Normal Saline) 1,000 mls @ 500 mls/hr IV .BOLUS ONE Stop: 02/07/17 23:29 Last Admin: 02/07/17 21:35 Dose: 500 mls/hr Sodium Chloride (Normal Saline) 1,000 mls @ 125 mls/hr IV ASDIRECTED [facility] Last Admin: 02/08/17 00:09 Dose: 125 mls/hr Levofloxacin/Dextrose 500 mg/ (Premix) 100 mls @ 100 mls/hr IV Q24H [facility] Last Admin: 02/08/17 16:57 Dose: Not Given Levofloxacin/Dextrose 500 mg/ (Premix) 100 mls @ 100 mls/hr IV ONETIME ONE Stop: 02/08/17 01:59 Last Admin: 02/08/17 02:29 Dose: 100 mls/hr Levofloxacin/Dextrose 250 mg/ (Premix) 50 mls @ 50 mls/hr IV Q24H [facility]OU[facility] Last Infusion: 02/08/17 22:01 Dose: Infused Iopamidol (Isovue-300 (61%)) 75 ml IVPUSH ONETIME ONE Stop: 02/07/17 22:01 Last Admin: 02/07/17 22:51 Dose: 75 ml - Exam General: Alert, Oriented, Cooperative, No Acute Distress HEENT: Pupils Equal, Pupils Reactive, Mucous Membr. Moist/[place] Neck: Supple, Trachea Midline, No JVD Lungs: Clear to Auscultation, Normal Respiratory Effort Cardiovascular: Regular Rate, Regular Rhythm GI/Abdominal Exam: Normal Bowel Sounds, Soft, No Organomegaly, No Distention, No Abnormal Bruit, No Mass, Tender (Mild, generalized). No: Distended, Guarding , Rigid, Rebound (Female) Exam: Deferred Back Exam: Normal Inspection, Full Range of Motion, CVA Tenderness (R). No: CVA Tenderness (L) Extremities: Normal Inspection, Normal Range of Motion, Non-Tender, No Pedal Edema, Normal Capillary Refill Skin: Warm, Dry, Intact Neurological: No New Focal Deficit Psy/Mental Status: Alert, Normal Affect, Normal Mood - Problem List & Annotations (1) Urinary tract infection SNOMED Code(s): 43123400 Code(s): N39.0 - URINARY TRACT INFECTION, SITE NOT SPECIFIED Status: Acute Current Visit: Yes (2) Dehydration SNOMED Code(s): 67093351 Code(s): E86.0 - DEHYDRATION Status: Acute Current Visit: Yes (3) Nausea and vomiting SNOMED Code(s): 84980421 Code(s): R11.2 - NAUSEA WITH VOMITING, UNSPECIFIED Status: Acute Current Visit: Yes (4) Sinus congestion SNOMED Code(s): 58805733 Code(s): R09.81 - NASAL CONGESTION Status: Acute Current Visit: Yes (5) Coronary artery disease SNOMED Code(s): 20847736 Code(s): I25.10 - ATHSCL HEART DISEASE OF [place] CORONARY ARTERY W/O ANG PCTRS Status: Chronic Current Visit: Yes (6) Abdominal pain SNOMED Code(s): 35640705 Code(s): R10.9 - UNSPECIFIED ABDOMINAL PAIN Status: Acute Current Visit: Yes - Problem List Review Problem List Initiated/Reviewed/Updated: Yes - My Orders Last 24 Hours: My Active Orders 02/09/17 12:20 CULTURE STOOL [RM] Routine 02/09/17 12:30 Piperacillin/Tazobactam [Zosyn] 3.375 gm Sodium Chloride 0.9% [Normal Saline] 100 ml IV Q8H metroNIDAZOLE/Normal Saline [Flagyl 500 MG in NS 100 ML] 500 mg Premix Bag 100 bag IV Q8H 02/09/17 Dinner Advance Diet Instructions [DIET] - Plan Plan:: Assessment and plan Abdominal pain, generalized Most likely from Complicated urinary tract infection with possible peylonephritis. However, I cannot exclude enterocolitis or possible small bowel obstruction. Patient received 1 L of normal saline as a bolus on admission mentioned to IV fluid infusion afterward. -Urine culture reported enterococcus and gram negative rods -decrease IV fluid from 50 to 35 mL per hour -Change Levaquin to Zosyn and Flagyl since he started having diarrhea -C. difficile and stool culture -Advised diet as tolerated -Awaiting final urine culture and blood culture results Complicated urinary tract infection -Urine culture reported enterococcus and gram negative rods -Change Levaquin to Zosyn and Flagyl since he started having diarrhea Diarrhea Possible from enterocolitis -Change Levaquin to Zosyn and Flagyl since he started having diarrhea -C. difficile and stool culture Nausea and vomiting Resolved Possibly from UTI or gastroenteritis versus enterocolitis Treatment as above Zofran and Phenergan as needed Dehydration, due to vomiting and decreased oral intake Improving -IV fluid as above -I and Os Sinus congestion Resolved Saline nasal spray as needed Essential hypertension Blood pressure is slightly elevated Atenolol was increased from 12.5-25 mg daily Diabetes mellitus, diet controlled Blood glucose is elevated on admission Sliding-scale insulin, low-dose protocol ordered History of coronary artery disease status post stent Continue aspirin and atenolol Patient stated that she has appointment with cardiology tomorrow for medication refill and routine checkup. She was advised to call her dental aide office and reschedule that appointment as soon as possible. She and her daughters were advised to remind us at time of discharge to refill her atenolol enough until she sees her dental aide Heparin for DVT prophylaxis She is full code
[2017-02-09] MEDS: Piperacillin/Tazobactam 3.375 GM in Sodium Chloride 0.9% 100 ML IV SCH ×2 (12:55→20:14)
[2017-02-09] MEDS: metroNIDAZOLE/Normal Saline 500 MG in Premix Bag 100 BAG IV SCH ×2 (13:46→20:53)
[2017-02-09] MEDS: Atenolol 25 MG Tab PO SCH (20:24)
[2017-02-10] MEDS: Pantoprazole 40 MG Vial IVPUSH SCH (01:11)
[2017-02-10] MEDS: Piperacillin/Tazobactam 3.375 GM in Sodium Chloride 0.9% 100 ML IV SCH ×3 (04:29→20:25)
[2017-02-10] MEDS: metroNIDAZOLE/Normal Saline 500 MG in Premix Bag 100 BAG IV SCH ×3 (05:08→21:07)
[2017-02-10] MEDS: Aspirin 81 MG Tab.Chew PO SCH (09:10)
[2017-02-10] MEDS: Gabapentin 100 MG Cap PO SCH ×2 (09:10→20:23)
[2017-02-10] MEDS: Heparin Sodium 5,000 Units/ML Vial SUBCUT SCH ×2 (09:10→20:23)
[2017-02-10] MEDS: Insulin Aspart 100 Units/ML 3 ML Pen SUBCUT SCH ×4 (09:12→21:05)
--- NOTE | 2017-02-10 10:42 | PCM.PN ---
- General Info Date of Service: 02/10/17 Admission Dx/Problem (Free Text): Admission Diagnosis/Problem Admission Diagnosis/Problem UTI, Urinary tract infectious disease Subjective Update: Patient stated that she is feeling better. She still having abdominal discomfort /pain. Her energy is better. She still having loose stool. She had 2 loose stool since yesterday noon. no blood or mucus in the stool. She denies fever, chills, nausea, vomiting, urinary symptoms, shortness breath, chest pain, upper surgery symptoms. - Patient Data Vitals - Most Recent: Last Vital Signs Temp 36.7 C 02/10/17 08:32 Pulse 58 L 02/10/17 08:32 Resp 20 02/10/17 08:32 BP 144/47 H 02/10/17 08:32 Pulse Ox 98 02/10/17 08:32 Weight - Most Recent: 55.61 kg I&O - Last 24 Hours: Intake & Output 02/09/17 02/10/17 02/10/17 22:59 06:59 14:59 Intake Total 981 308 200 Output Total 1100 300 Balance -119 8 200 Lab Results Last 24 Hours: Laboratory Results - last 24 hr 02/09/17 02/09/17 02/09/17 Range/Units 10:53 16:43 20:52 POC Glucose 112 H 104 151 H (83-110) mg/dl 02/10/17 Range/Units 08:21 POC Glucose 116 H (83-110) mg/dl [place] Results Last 24 Hours: Microbiology 02/09/17 14:15 Stool Culture - Preliminary Other - Stool NORMAL ENTERIC RAFIQ 1 DAY Med Orders - Current: Current Medications Acetaminophen (Tylenol) 650 mg PO Q4H PRN PRN Reason: Pain (Mild 1-3)/fever Aspirin (Aspirin) 81 mg PO DAILY [facility] Last Admin: 02/10/17 09:10 Dose: 81 mg Atenolol (Tenormin) 25 mg PO BEDTIME [facility] Last Admin: 02/09/17 20:24 Dose: 25 mg Gabapentin (Neurontin) 100 mg PO BID [facility] Last Admin: 02/10/17 09:10 Dose: 100 mg Heparin Sodium (Porcine) (Heparin Sodium) 5,000 units SUBCUT Q12H [facility] Last Admin: 02/10/17 09:10 Dose: 5,000 units Piperacillin Sod/Tazobactam (Sod 3.375 gm/ Sodium Chloride) 100 mls @ 200 mls/ hr IV Q8H [facility] Last Infusion: 02/10/17 05:01 Dose: Infused Metronidazole 500 mg/ Premix 100 mls @ 100 mls/hr IV Q8H [facility] Last Infusion: 02/10/17 06:17 Dose: Infused Insulin Aspart (Novolog) 0 unit SUBCUT QIDACANDBED [facility] PRN Reason: Protocol Last Admin: 02/10/17 09:12 Dose: Not Given Morphine Sulfate (Morphine) 2 mg IVPUSH Q4H PRN PRN Reason: Pain (severe 7-10) Ondansetron HCl (Zofran) 4 mg IVPUSH Q6H PRN PRN Reason: Nausea/Vomiting Pantoprazole Sodium (Protonix Iv) 40 mg IVPUSH Q24H [facility] Last Admin: 02/10/17 01:11 Dose: 40 mg Promethazine HCl (Phenergan) 6.25 mg IM Q6H PRN PRN Reason: Nausea/Vomiting Sodium Chloride ([place] Nasal [place]) 0 ml CANELO Q2H PRN PRN Reason: Nasal congestion Discontinued Medications Sodium Chloride (Normal Saline) 1,000 mls @ 500 mls/hr IV .BOLUS ONE Stop: 02/07/17 23:29 Last Admin: 02/07/17 21:35 Dose: 500 mls/hr Sodium Chloride (Normal Saline) 1,000 mls @ 125 mls/hr IV ASDIRECTED [facility] Last Admin: 02/08/17 00:09 Dose: 125 mls/hr Levofloxacin/Dextrose 500 mg/ (Premix) 100 mls @ 100 mls/hr IV Q24H [facility] Last Admin: 02/08/17 16:57 Dose: Not Given Sodium Chloride (Normal Saline) 1,000 mls @ 35 mls/hr IV ASDIRECTED [facility] Stop: 02/09/17 18:00 Last Infusion: 02/09/17 19:15 Dose: 35 mls/hr Levofloxacin/Dextrose 500 mg/ (Premix) 100 mls @ 100 mls/hr IV ONETIME ONE Stop: 02/08/17 01:59 Last Admin: 02/08/17 02:29 Dose: 100 mls/hr Levofloxacin/Dextrose 250 mg/ (Premix) 50 mls @ 50 mls/hr IV Q24H [facility] Last Infusion: 02/08/17 22:01 Dose: Infused Iopamidol (Isovue-300 (61%)) 75 ml IVPUSH ONETIME ONE Stop: 02/07/17 22:01 Last Admin: 02/07/17 22:51 Dose: 75 ml - Exam General: Alert, Oriented, Cooperative. No: No Acute Distress, Severe Distress, Sedated, Lethargic, Obtunded HEENT: Pupils Equal, Pupils Reactive, EOMI, Mucous Membr. Moist/[place] Neck: Supple, Trachea Midline, No JVD Lungs: Clear to Auscultation, Normal Respiratory Effort. No: Crackles, Rales, Rhonchi, Rub, Stridor, Wheezing Cardiovascular: Regular Rate, Regular Rhythm GI/Abdominal Exam: Normal Bowel Sounds, Soft, Non-Tender, No Organomegaly, No Distention, No Abnormal Bruit, Tender (Generalized mild tenderness with deep palpation). No: Distended, Guarding, Rigid (Female) Exam: Deferred Back Exam: Normal Inspection, Full Range of Motion. No: CVA Tenderness (L), CVA Tenderness (R) Extremities: Normal Inspection, Normal Range of Motion, Non-Tender, No Pedal Edema, Normal Capillary Refill Skin: Warm, Dry, Intact Neurological: No New Focal Deficit Psy/Mental Status: Alert, Normal Affect, Normal Mood - Problem List & Annotations (1) Urinary tract infection SNOMED Code(s): 81850563 Code(s): N39.0 - URINARY TRACT INFECTION, SITE NOT SPECIFIED Status: Acute Current Visit: Yes (2) Dehydration SNOMED Code(s): 64826482 Code(s): E86.0 - DEHYDRATION Status: Acute Current Visit: Yes (3) Nausea and vomiting SNOMED Code(s): 77268215 Code(s): R11.2 - NAUSEA WITH VOMITING, UNSPECIFIED Status: Acute Current Visit: Yes (4) Sinus congestion SNOMED Code(s): 86865113 Code(s): R09.81 - NASAL CONGESTION Status: Acute Current Visit: Yes (5) Coronary artery disease SNOMED Code(s): 94542781 Code(s): I25.10 - ATHSCL HEART DISEASE OF [place] CORONARY ARTERY W/O ANG PCTRS Status: Chronic Current Visit: Yes (6) Abdominal pain SNOMED Code(s): 88384552 Code(s): R10.9 - UNSPECIFIED ABDOMINAL PAIN Status: Acute Current Visit: Yes - Problem List Review Problem List Initiated/Reviewed/Updated: Yes - My Orders Last 24 Hours: My Active Orders 02/09/17 12:30 Piperacillin/Tazobactam [Zosyn] 3.375 gm Sodium Chloride 0.9% [Normal Saline] 100 ml IV Q8H 02/09/17 13:00 metroNIDAZOLE/Normal Saline [Flagyl 500 MG in NS 100 ML] 500 mg Premix Bag 100 bag IV Q8H 02/09/17 14:15 CULTURE STOOL [RM] Routine SHIGA TOXIN 1 & 2 [MREF] Routine 02/09/17 Dinner Advance Diet Instructions [DIET] 02/10/17 10:25 C DIFFICILE TOXIN BY PCR [MREF] Urgent 02/10/17 10:26 BASIC METABOLIC PANEL,BMP [CHEM] Routine CBC WITH AUTO DIFF [HEME] Routine - Plan Plan:: Assessment and plan Abdominal pain, generalized Most likely from Complicated urinary tract infection with possible peylonephritis. However, I cannot exclude enterocolitis or possible small bowel obstruction. Patient received 1 L of normal saline as a bolus on admission mentioned to IV fluid infusion afterward. Levaquin was started on admission and changed to Zosyn and Flagyl on 02/09/17 after started having diarrhea and urine culture reported enterococcus and gram- negative rods -Urine culture report from today shows only Klebsiella. I called the lab to verify if the patient has enterococcus in her urine or not. Bill from lab declined enterococcus in the urine. Might have been an error report yesterday. -stop IV fluids Levaquin was started on admission and changed to Zosyn and Flagyl on 02/09/17 after started having diarrhea -Awaiting C. difficile and stool culture -Advance diet to diabetic diet -Awaiting final urine culture and blood culture results Complicated urinary tract infection -Urine culture report from today shows only Klebsiella. -Continue Zosyn Diarrhea Possible from enterocolitis -Continue Zosyn and Flagyl -Awaiting results for C. difficile and stool culture Nausea and vomiting Resolved Possibly was from UTI or gastroenteritis versus enterocolitis Treatment as above Zofran and Phenergan as needed Dehydration, due to vomiting and decreased oral intake Resolved. She received IV fluid -I and Os Sinus congestion Resolved Saline nasal spray as needed Essential hypertension Blood pressure is slightly elevated Atenolol was increased from 12.5 to 25 mg daily Diabetes mellitus, diet controlled Blood glucose is elevated on admission Sliding-scale insulin, low-dose protocol ordered History of coronary artery disease status post stent Continue aspirin and atenolol Patient stated that she has appointment with cardiology tomorrow for medication refill and routine checkup. She was advised to call her tactical debriefer office and reschedule that appointment as soon as possible. She and her daughters were advised to remind us at time of discharge to refill her atenolol enough until she sees her tactical debriefer Heparin for DVT prophylaxis She is full code
[2017-02-10 12:00] LABS: CHLORIDE,CL 106 mmol/L (101-111); SODIUM,NA 141 mmol/L (135-145)
[2017-02-10] MEDS: Atenolol 25 MG Tab PO SCH (20:22)
[2017-02-11] MEDS: Pantoprazole 40 MG Vial IVPUSH SCH (01:14)
[2017-02-11] MEDS: Piperacillin/Tazobactam 3.375 GM in Sodium Chloride 0.9% 100 ML IV SCH ×2 (04:14→11:53)
[2017-02-11] MEDS: metroNIDAZOLE/Normal Saline 500 MG in Premix Bag 100 BAG IV SCH ×2 (04:49→12:30)
[2017-02-11] MEDS: Insulin Aspart 100 Units/ML 3 ML Pen SUBCUT SCH ×2 (08:32→11:58)
[2017-02-11] MEDS: Aspirin 81 MG Tab.Chew PO SCH (08:34)
[2017-02-11] MEDS: Heparin Sodium 5,000 Units/ML Vial SUBCUT SCH (08:34)
[2017-02-11] MEDS: Gabapentin 100 MG Cap PO SCH (08:34)
--- NOTE | 2017-02-11 11:08 | PCM.DCSUM1 ---
Discharge Summary - Hospital Course Free Text/Narrative:: 81-year-old female with past medical history of coronary artery disease status post stent, diabetes mellitus diet controlled present to the emergency room for having abdominal pain, nausea, vomiting, feeling tired, sinus congestion since Tuesday afternoon-02/06/17. Patient stated that on [place] and had eaten buffets there and at noon she started having generalized abdominal pain. She describes the pain as cramping, intermittent, nothing makes it worse or better, no radiation, rated 10/10 on pain scale today before admission but got better. She had multiple vomiting prior to admission. She was not eating due to the nausea. She was feeling feverish on day of admission. She states she had sinus congestion and headache for the last 2 days before admission but no sore throat. She thinks it's allergy. Patient checked her temperature at home and was 99.4. Patient denies chest pain, shortness breath, cough, back pain, urinary symptoms, dysuria, urinary frequency, diarrhea, blood in the stool, black stool. Patient had regular bowel movement and is passing gas. In the emergency room her UA reported positive nitrate and many bacteria but only 0-5 WBC. WBC 15 K. No left shift. "CT abdomen reported multiple dilated fluid filled small bowel loops. The distal ileum appears decompressed. Additionally there is some mild circumferential mucosal thickening of the sigmoid colon. Findings likely consistent with enterocolitis and low-grade obstruction versus ileus. There is free fluid in the pelvis." She was started on Levaquin. She received IV fluid. Later Levaquin was changed to Flagyl and Zosyn. Urine culture became positive for Escherichia coli which is sensitive to Zosyn and Levaquin. Stool culture is negative. C. difficile test is pending. During hospitalization patient nausea, vomiting, abdominal pain resolved however she developed loose stool. Possibly from antibiotic but we are still awaiting to see if she has C. difficile or not. Her blood glucose was slightly elevated and she was requiring 1-2 units of NovoLog before meals. Patient did not want to be started on any antihyperglycemic medications at home and she wants to talk to her primary care provider in that regard. Her blood pressure was elevated. She states she takes atenolol 12.5 mg at home so it was increased to 25 mg daily. Patient systolic blood pressure was ranging between 130 to 170. She declined adding any other blood pressure medicine. She is aware that high blood pressure can cause stroke which can cause . She has appointment with cardiology provider coming soon. She was advised to follow-up with primary care provider and GI specialist and discuss the need for colonoscopy. She was advised to do gluten free diet for 2 weeks because she has chronic gurgling. Patient declined to stay one more day to make sure that her loose stool is resolved and her C. difficile results are back. She will continue on Flagyl and Cipro orally for a total of 10 days - Discharge Data Discharge Date: 02/11/17 Discharge Disposition: Home, Self-Care 01 Condition: Good - Discharge Diagnosis/Problem(s) (1) Urinary tract infection SNOMED Code(s): 61896640 ICD Code: N39.0 - URINARY TRACT INFECTION, SITE NOT SPECIFIED Status: Acute Current Visit: Yes (2) Dehydration SNOMED Code(s): 35397365 ICD Code: E86.0 - DEHYDRATION Status: Acute Current Visit: Yes (3) Nausea and vomiting SNOMED Code(s): 37736229 ICD Code: R11.2 - NAUSEA WITH VOMITING, UNSPECIFIED Status: Acute Current Visit: Yes (4) Sinus congestion SNOMED Code(s): 98974991 ICD Code: R09.81 - NASAL CONGESTION Status: Acute Current Visit: Yes (5) Coronary artery disease SNOMED Code(s): 74184736 ICD Code: I25.10 - ATHSCL HEART DISEASE OF [place] CORONARY ARTERY W/O ANG PCTRS Status: Chronic Current Visit: Yes (6) Abdominal pain SNOMED Code(s): 51621256 ICD Code: R10.9 - UNSPECIFIED ABDOMINAL PAIN Status: Acute Current Visit : Yes (7) Enterocolitis SNOMED Code(s): 78817200 ICD Code: K52.9 - NONINFECTIVE GASTROENTERITIS AND COLITIS, UNSPECIFIED Status: Acute Current Visit: Yes - Patient Instructions Diet: Heart Healthy Diet, Diabetic Diet Activity: As Tolerated Showering/Bathing: May Shower Notify Provider of: Fever, Increased Pain, Swelling and Redness, Nausea and/or Vomiting - Discharge Plan Prescriptions/Med Rec: Ciprofloxacin HCl [Cipro] 500 mg PO BID 7 Days #14 tablet metroNIDAZOLE [Flagyl] 500 mg PO Q8H 7 Days #21 tablet Home Medications: Home Meds Aspirin 81 mg PO DAILY 08/09/16 [History] Atenolol 25 mg PO BEDTIME 08/09/16 [History] Gabapentin 100 mg PO BID 08/09/16 [History] Nitroglycerin [Nitrostat] 0.4 mg PO DAILY 08/09/16 [History] Ciprofloxacin HCl [Cipro] 500 mg PO BID 7 Days #14 tablet 02/11/17 [Rx] metroNIDAZOLE [Flagyl] 500 mg PO Q8H 7 Days #21 tablet 02/11/17 [Rx] Referrals: PCP,Unobtain [Ordering Only Provider] - - Discharge Summary/Plan Comment DC Time >30 min.: Yes (35 minutes were spent on discharge) - General Info Date of Service: 02/11/17 - Review of Systems General: Reports: No Symptoms HEENT: Reports: No Symptoms Pulmonary: Reports: No Symptoms Cardiovascular: Reports: No Symptoms Gastrointestinal: Reports: Diarrhea (Looses stool), Flatus. Denies: Abdominal Pain, Constipation, Decreased Appetite, Difficulty Swallowing, Hematochezia, Melena, Nausea, Vomiting Genitourinary: Reports: No Symptoms Musculoskeletal: Reports: No Symptoms Skin: Reports: No Symptoms Neurological: Reports: No Symptoms Psychiatric: Reports: No Symptoms - Patient Data Vitals - Most Recent: Last Vital Signs Temp 36.2 C 02/11/17 07:00 Pulse 55 L 02/11/17 07:00 Resp 18 02/11/17 07:00 BP 153/52 H 02/11/17 07:00 Pulse Ox 99 02/11/17 07:00 Weight - Most Recent: 56.608 kg I&O - Last 24 hours: Intake & Output 02/10/17 02/11/17 02/11/17 22:59 06:59 14:59 Intake Total 392 200 600 Output Total 1000 300 Balance -608 200 300 Lab Results - Last 24 hrs: Laboratory Results - last 24 hr 02/10/17 02/10/17 02/10/17 Range/Units 10:58 11:32 11:32 WBC 6.6 (5.0-10.0) 10^3/uL RBC 3.97 L (4.2-5.4) 10^6/uL Hgb 12.0 (12.0-16.0) g/dL Hct 36.7 L (37.0-47.0) % MCV 92.4 (80-100) fL MCH 30.2 (27.0-34.0) pg MCHC 32.7 L (33.0-35.0) g/dL Plt Count 318 (150-450) 10^3/uL Neut % (Auto) 54.6 (42.2-75.2) % Lymph % (Auto) 27.1 (20.5-50.1) % [place] % (Auto) 13.5 H (2-8) % Eos % (Auto) 4.2 H (1.0-3.0) % Baso % (Auto) 0.6 (0.0-1.0) % Sodium 141 (135-145) mmol/L Potassium 3.4 L (3.6-5.0) mmol/L Chloride 106 (101-111) mmol/L Carbon Dioxide 23.0 (21.0-31.0) mmol/L Anion Gap 15.4 BUN 11 (7-18) mg/dL Creatinine 0.6 (0.6-1.3) mg/dL Est Cr Clr Drug Dosing 51.92 mL/min Estimated GFR (MDRD) > 60 Glucose 176 H (74-105) mg/dL POC Glucose 186 H (83-110) mg/dl Calcium 8.6 (8.4-10.2) mg/dl 02/10/17 02/10/17 02/11/17 Range/Units 16:45 20:43 07:59 WBC (5.0-10.0) 10^3/uL RBC (4.2-5.4) 10^6/uL Hgb (12.0-16.0) g/dL Hct (37.0-47.0) % MCV (80-100) fL MCH (27.0-34.0) pg MCHC (33.0-35.0) g/dL Plt Count (150-450) 10^3/uL Neut % (Auto) (42.2-75.2) % Lymph % (Auto) (20.5-50.1) % [place] % (Auto) (2-8) % Eos % (Auto) (1.0-3.0) % Baso % (Auto) (0.0-1.0) % Sodium (135-145) mmol/L Potassium (3.6-5.0) mmol/L Chloride (101-111) mmol/L Carbon Dioxide (21.0-31.0) mmol/L Anion Gap BUN (7-18) mg/dL Creatinine (0.6-1.3) mg/dL Est Cr Clr Drug Dosing mL/min Estimated GFR (MDRD) Glucose (74-105) mg/dL POC Glucose 158 H 222 H 122 H (83-110) mg/dl Calcium (8.4-10.2) mg/dl BIGG Results - Last 24 hrs: Microbiology 02/09/17 14:15 [place] Toxin I & II - Final Stool / Feces - Stool, Liquid 02/09/17 14:15 Stool Culture - Preliminary Other - Stool NORMAL ENTERIC RAFIQ 2 DAYS Med Orders - Current: Current Medications Acetaminophen (Tylenol) 650 mg PO Q4H PRN PRN Reason: Pain (Mild 1-3)/fever Aspirin (Aspirin) 81 mg PO DAILY [facility] Last Admin: 02/11/17 08:34 Dose: 81 mg Atenolol (Tenormin) 25 mg PO BEDTIME [facility] Last Admin: 02/10/17 20:22 Dose: Not Given Gabapentin (Neurontin) 100 mg PO BID [facility] Last Admin: 02/11/17 08:34 Dose: 100 mg Heparin Sodium (Porcine) (Heparin Sodium) 5,000 units SUBCUT Q12H [facility] Last Admin: 02/11/17 08:34 Dose: 5,000 units Piperacillin Sod/Tazobactam (Sod 3.375 gm/ Sodium Chloride) 100 mls @ 200 mls/ hr IV Q8H [facility] Last Infusion: 02/11/17 04:48 Dose: Infused Metronidazole 500 mg/ Premix 100 mls @ 100 mls/hr IV Q8H [facility] Last Infusion: 02/11/17 06:10 Dose: Infused Insulin Aspart (Novolog) 0 unit SUBCUT QIDACANDBED [facility] PRN Reason: Protocol Last Admin: 02/11/17 08:32 Dose: Not Given Morphine Sulfate (Morphine) 2 mg IVPUSH Q4H PRN PRN Reason: Pain (severe 7-10) Ondansetron HCl (Zofran) 4 mg IVPUSH Q6H PRN PRN Reason: Nausea/Vomiting Pantoprazole Sodium (Protonix Iv) 40 mg IVPUSH Q24H [facility] Last Admin: 02/11/17 01:14 Dose: 40 mg Promethazine HCl (Phenergan) 6.25 mg IM Q6H PRN PRN Reason: Nausea/Vomiting Sodium Chloride ([place] Nasal [place]) 0 ml CANELO Q2H PRN PRN Reason: Nasal congestion Discontinued Medications Sodium Chloride (Normal Saline) 1,000 mls @ 500 mls/hr IV .BOLUS ONE Stop: 02/07/17 23:29 Last Admin: 02/07/17 21:35 Dose: 500 mls/hr Sodium Chloride (Normal Saline) 1,000 mls @ 125 mls/hr IV ASDIRECTED [facility] Last Admin: 02/08/17 00:09 Dose: 125 mls/hr Levofloxacin/Dextrose 500 mg/ (Premix) 100 mls @ 100 mls/hr IV Q24H [facility] Last Admin: 02/08/17 16:57 Dose: Not Given Sodium Chloride (Normal Saline) 1,000 mls @ 35 mls/hr IV ASDIRECTED [facility] Stop: 02/09/17 18:00 Last Infusion: 02/09/17 19:15 Dose: 35 mls/hr Levofloxacin/Dextrose 500 mg/ (Premix) 100 mls @ 100 mls/hr IV ONETIME ONE Stop: 02/08/17 01:59 Last Admin: 02/08/17 02:29 Dose: 100 mls/hr Levofloxacin/Dextrose 250 mg/ (Premix) 50 mls @ 50 mls/hr IV Q24H [facility] Last Infusion: 02/08/17 22:01 Dose: Infused Iopamidol (Isovue-300 (61%)) 75 ml IVPUSH ONETIME ONE Stop: 02/07/17 22:01 Last Admin: 02/07/17 22:51 Dose: 75 ml - Exam General: Reports: Alert, Oriented, Cooperative, No Acute Distress. Denies: Mild Distress, Moderate Distress, Severe Distress, Sedated, Lethargic, Obtunded HEENT: Reports: Pupils Equal, Pupils Reactive, EOMI, Mucous Membr. Moist/[place]. Denies: Scleral Icterus Neck: Reports: Supple, Trachea Midline, No JVD Lungs: Reports: Clear to Auscultation, Normal Respiratory Effort. Denies: Decreased Breath Sounds, Crackles, Rales, Rhonchi, Rub, Stridor, Wheezing Cardiovascular: Reports: Regular Rate, Regular Rhythm GI/Abdominal Exam: Normal Bowel Sounds, Soft, Non-Tender, No Organomegaly, No Distention, No Abnormal Bruit, No Mass. No: Distended, Guarding, Rigid, Rebound (Female) Exam: Deferred Rectal (Female) Exam: Deferred Back Exam: Reports: Normal Inspection, Full Range of Motion. Denies: CVA Tenderness (L), CVA Tenderness (R) Extremities: Normal Inspection, Normal Range of Motion, Non-Tender, No Pedal Edema, Normal Capillary Refill Skin: Reports: Warm, Dry, Intact Neurological: Reports: No New Focal Deficit Psy/Mental Status: Reports: Alert, Normal Affect, Normal Mood *Q Meaningful Use (DIS) - VTE *Q VTE Criteria *Q: - Stroke *Q Stroke Criteria *Q: - AMI *Q AMI Criteria *Q:
[2017-02-11 12:29] VITALS: BP 145/48
== END 2017-02-11 14:00 | disposition home or self-care (01) | DRG 690 ==
LOC: DL.ED 20:32 → DL.MS 02-08 00:35 → OBSVTOIN 02-08 00:35 → INTOOBSV 02-08 00:35 → UNDOADMOB 02-08 00:35 → OBSVTOIN 02-08 01:14 → DL.MS 02-08 01:14
PROVIDERS: ADMIT Family Medicine; ATTEND Family Medicine
DX: K56.60 Unspecified intestinal obstruction (principal); N39.0 Urinary tract infection, site not specified; R10.84 Generalized abdominal pain; E86.0 Dehydration; R11.2 Nausea with vomiting, unspecified; R09.81 Nasal congestion; I25.10 Atherosclerotic heart disease of native coronary artery without angina pectoris; H54.7 Unspecified visual loss; I10 Essential (primary) hypertension; Z95.5 Presence of coronary angioplasty implant and graft; E11.9 Type 2 diabetes mellitus without complications; R19.7 Diarrhea, unspecified; B96.1 Klebsiella pneumoniae [K. pneumoniae] as the cause of diseases classified elsewhere; M19.90 Unspecified osteoarthritis, unspecified site; G89.29 Other chronic pain; M54.9 Dorsalgia, unspecified; G62.9 Polyneuropathy, unspecified; Z88.2 Allergy status to sulfonamides; Z88.6 Allergy status to analgesic agent; Z79.82 Long term (current) use of aspirin; Z79.899 Other long term (current) drug therapy
CPT/HCPCS: 36415; 74177; 80053; 81001; 82150; 83605; 83690; 84484; 85025; 87040 ×2; 87086; 96360; 96361; 99284; J7030 ×2; Q9967; 80048; 82962; 83735; 84100; 86140; 87045; 87046; 87088; 87186; 87493; 87899; A9270-GY; C9113; J1644; J1815-GY; J1956; J2543; J7050

== ENCOUNTER 2017-05-21 09:50 | Emergency (ER) | payer MEDICARE, OTHER ==
[2017-05-21] MEDS ORDERED: Sodium Chloride 0.9% 10 ML Syringe FLUSH PRN (09:58)
--- NOTE | 2017-05-21 10:13 | EDM.PDOC ---
ED HPI GENERAL MEDICAL PROBLEM - General Chief Complaint: Upper Extremity Injury/Pain Stated Complaint: SHOULDER PAIN, DOWN ARM Time Seen by Provider: 05/21/17 10:00 Source of Information: Reports: Patient, RN, RN Notes Reviewed History Limitations: Reports: No Limitations - History of Present Illness INITIAL COMMENTS - FREE TEXT/NARRATIVE: Patient presents to the ER with complaint of left shoulder pain into the left arm andneck. Patient has history of [place] 5 years ago which presented with left scapula pain. Patient states she recently had acupuncture on for muscle spasm. Pain began yesterday which comes and goes 5/10 spasm pain. She began acupuncture about one month ago. She has positive cough with production, headache yesterday, shortness of breath at times. No fever, chills, nausea, vomiting, diarrhea or diaphoresis. Daughter in room. Location: Reports: Chest, Upper Extremity, Left Quality: Reports: Ache Severity: Moderate Improves with: Reports: None Worsens with: Reports: None Associated Symptoms: Reports: No Other Symptoms Left Shoulder Pain Score (Numeric/FACES): 6 - Related Data Allergies Allergy/AdvReac Type Severity Reaction Status Date / Time alcohol Allergy Cannot Verified 05/21/17 09:57 Remember Sulfa (Sulfonamide Allergy Cannot Verified 05/21/17 09:57 Antibiotics) Remember tramadol Allergy Airway Verified 05/21/17 09:57 Tightness Home Meds: Home Meds Aspirin 81 mg PO DAILY 08/09/16 [History] Atenolol 25 mg PO BEDTIME 08/09/16 [History] Gabapentin 100 mg PO BID 08/09/16 [History] Nitroglycerin [Nitrostat] 0.4 mg PO DAILY 08/09/16 [History] Meloxicam [Meloxicam] 0.5 tab PO DAILY 05/21/17 [History] Multivitamin [Multivitamins] 1 each PO DAILY 05/21/17 [History] Past Medical History HEENT History: Reports: Impaired Vision Cardiovascular History: Reports: Hypertension, [place], Stents Gastrointestinal History: Reports: Diverticulosis Musculoskeletal History: Reports: Back Pain, Chronic, Osteoarthritis Neurological History: Reports: Neuropathy, Peripheral Endocrine/Metabolic History: Reports: Diabetes, Type II - Infectious Disease History Infectious Disease History: Reports: Shingles - Past Surgical History HEENT Surgical History: Reports: Tonsillectomy Cardiovascular Surgical History: Reports: Carotid Stents GI Surgical History: Reports: Appendectomy, Cholecystectomy, Colonoscopy Female Surgical History: Reports: Hysterectomy Musculoskeletal Surgical History: Reports: Carpal Tunnel Social & Family History - Family History Family Medical History: Noncontributory - Tobacco Use Smoking Status *Q: Never Smoker Second Hand Smoke Exposure: No - Caffeine Use Caffeine Use: Reports: Coffee, Soda, Tea - Recreational Drug Use Recreational Drug Use: No Review of Systems - Review of Systems Review Of Systems: ROS reveals no pertinent complaints other than HPI. ED EXAM, GENERAL - Physical Exam Exam: See Below Exam Limited By: No Limitations General Appearance: Alert, WD/WN, No Apparent Distress Eye Exam: Bilateral Eye: Normal Inspection Ears: Normal External Exam, Normal Canal, Hearing Grossly Normal, Normal TMs Nose: Normal Inspection, Normal Mucosa, No Blood Throat/Mouth: Normal Inspection, Normal Lips, Normal Teeth, Normal Gums, Normal Oropharynx, Normal Voice, No Airway Compromise Head: Atraumatic, Normocephalic Neck: Normal Inspection, Supple, Non-Tender, Full Range of Motion Respiratory/Chest: Crackles (right base) Cardiovascular: Normal Peripheral Pulses, Regular Rate, Rhythm, No Edema, No Gallop, No JVD, No Murmur, No Rub GI/Abdominal: Normal Bowel Sounds, Soft, Non-Tender, No Organomegaly, No Distention, No Abnormal Bruit, No Mass (Female) Exam: Deferred Rectal (Female) Exam: Deferred Back Exam: Normal Inspection, Full Range of Motion, NT Extremities: Other (decreased range of motion left shoulder) Neurological: Alert Psychiatric: Normal Affect Skin Exam: Warm, Dry, Intact, Normal Color, No Rash Lymphatic: No Adenopathy EKG INTERPRETATION EKG Date: 05/21/17 Time: 10:03 Rhythm: NSR Rate (Beats/Min): 61 [place]: LAD-Left [place] Deviation P-Wave: Present QRS: Normal ST-T: Normal QT: Normal Comparison: No Change Course - Vital Signs Last Recorded V/S: Last Vital Signs Temp 98.2 F 05/21/17 11:12 Pulse 57 L 05/21/17 11:12 Resp 10 L 05/21/17 11:12 BP 143/51 H 05/21/17 11:12 Pulse Ox 97 05/21/17 11:12 - Orders/Labs/Meds Orders: Active Orders 24 hr Category Date Time Status EKG Documentation Completion [RC] STAT Care 05/21/17 09:58 Active Peripheral IV Care [RC] . DIRECTED Care 05/21/17 09:58 Active Chest 1V Frontal [CR] Stat Exams 05/21/17 09:58 Taken Sodium Chloride 0.9% [Saline Flush] Med 05/21/17 09:58 Active 10 ml FLUSH ASDIRECTED PRN Peripheral IV Insertion Adult [OM.PC] Stat Oth 05/21/17 09:58 Ordered Medication Orders Sodium Chloride (Saline Flush) 10 ml FLUSH ASDIRECTED PRN PRN Reason: Keep Vein Open Last Admin: 05/21/17 10:47 Dose: 10 ml Labs: Laboratory Tests 05/21/17 05/21/17 Range/Units 10:00 10:00 WBC 7.3 (5.0-10.0) 10^3/uL RBC 4.44 (4.2-5.4) 10^6/uL Hgb 13.3 (12.0-16.0) g/dL Hct 41.2 (37.0-47.0) % MCV 92.8 (80-100) fL MCH 30.0 (27.0-34.0) pg MCHC 32.3 L (33.0-35.0) g/dL Plt Count 274 (150-450) 10^3/uL Neut % (Auto) 37.6 L (42.2-75.2) % Lymph % (Auto) 39.9 (20.5-50.1) % [place] % (Auto) 16.5 H (2-8) % Eos % (Auto) 5.6 H (1.0-3.0) % Baso % (Auto) 0.4 (0.0-1.0) % Sodium 139 (135-145) mmol/L Potassium 3.5 L (3.6-5.0) mmol/L Chloride 103 (101-111) mmol/L Carbon Dioxide 33.0 H D (21.0-31.0) mmol/L Anion Gap 6.5 BUN 10 (7-18) mg/dL Creatinine 0.6 (0.6-1.3) mg/dL Est Cr Clr Drug Dosing 51.92 mL/min Estimated GFR (MDRD) > 60 BUN/Creatinine Ratio 16.66 Glucose 159 H (74-105) mg/dL Calcium 8.8 (8.4-10.2) mg/dl Total Bilirubin 0.9 (0.2-1.0) mg/dL AST 29 (10-42) IU/L ALT 31 (10-60) IU/L Alkaline Phosphatase 90 (42-121) IU/L Troponin I < 0.02 (0.00-0.02) ng/ml Total Protein 6.5 L (6.7-8.2) g/dl Albumin 3.6 (3.2-5.5) g/dl Globulin 2.9 Albumin/Globulin Ratio 1.24 Meds: Medications Generic Name Dose Route Start Last Admin Trade Name Freq PRN Reason Stop Dose Admin Sodium Chloride 10 ml 05/21/17 09:58 05/21/17 10:47 Saline Flush FLUSH 10 ml ASDIRECTED PRN Administration Keep Vein Open Discontinued Medications Generic Name Dose Route Start Last Admin Trade Name Freq PRN Reason Stop Dose Admin Aspirin 324 mg 05/21/17 10:25 05/21/17 10:47 Aspirin PO 05/21/17 10:26 324 mg ONETIME ONE Administration - Radiology Interpretation Free Text/Narrative:: Chest x-ray: No acute abnormality. See Rad report. Departure - Departure Time of Disposition: 11:30 Disposition: Home, Self-Care 01 Condition: Fair Clinical Impression: Trapezius muscle spasm, Cervical radicular pain - Discharge Information Instructions: Muscle Strain, [id number] Forms: ED Department Discharge Additional Instructions: May use Tylenol as well for pain Continue regular regimen for medications Alternate ice and heat - My Orders Last 24 Hours: My Active Orders 05/21/17 09:58 EKG Documentation Completion [RC] STAT Peripheral IV Care [RC] . DIRECTED Chest 1V Frontal [CR] Stat Sodium Chloride 0.9% [Saline Flush] 10 ml FLUSH ASDIRECTED PRN Peripheral IV Insertion Adult [OM.PC] Stat - Assessment/Plan Last 24 Hours: My Active Orders 05/21/17 09:58 EKG Documentation Completion [RC] STAT Peripheral IV Care [RC] . DIRECTED Chest 1V Frontal [CR] Stat Sodium Chloride 0.9% [Saline Flush] 10 ml FLUSH ASDIRECTED PRN Peripheral IV Insertion Adult [OM.PC] Stat
[2017-05-21] MEDS ORDERED: Aspirin 81 MG Tab.Chew PO ONE (10:25)
[2017-05-21 10:29] LABS: ANION GAP 6.5; CHLORIDE,CL 103 mmol/L (101-111); SODIUM,NA 139 mmol/L (135-145)
[2017-05-21 11:13] VITALS: BP 143/51
--- NOTE | 2017-05-25 21:20 | EKG ---
05/21/2017 - JOSEE GREGG - This 12-lead EKG shows a normal sinus rhythm with a ventricular rate of 61. Borderline left-axis deviation. No acute ST-segment or T-wave changes. Nonspecific T-waves in the inferior leads. [facility] /[id number]
== END 2017-05-21 11:38 | disposition home or self-care (01) ==
LOC: DL.ED 09:50
DX: M62.838 Other muscle spasm (principal); M54.12 Radiculopathy, cervical region; I10 Essential (primary) hypertension; E11.40 Type 2 diabetes mellitus with diabetic neuropathy, unspecified; Z88.2 Allergy status to sulfonamides; Z88.5 Allergy status to narcotic agent; Z79.82 Long term (current) use of aspirin; Z79.899 Other long term (current) drug therapy
CPT/HCPCS: 36415; 71010; 80053; 84484; 85025; 93005; 99284; A9270; J7050; 93010; 99283

== ENCOUNTER 2019-03-27 11:49 | Emergency (ER) | payer MEDICARE, OTHER ==
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
[~2019-03-27 11:49] MED LIST: Sodium Chloride 0.9% 10 ML Syringe FLUSH PRN
[2019-03-27] MEDS ORDERED: Ondansetron 4 MG/2 ML SDV ONE (11:53)
[2019-03-27] MEDS ORDERED: Lactated Ringers 1,000 ML IV ONE (11:54)
[2019-03-27] MEDS ORDERED: Ondansetron 4 MG/2 ML SDV IV ONE (11:55)
[2019-03-27 12:27] LABS: ANION GAP 14.6; CHLORIDE,CL 102 mmol/L (101-111); SODIUM,NA 138 mmol/L (135-145)
[2019-03-27] MEDS ORDERED: Diphtheria,Pertussis(Acell),Tetanus Vaccine 0.5 ML SDV ONE (12:28)
[2019-03-27] MEDS ORDERED: Diphtheria,Pertussis(Acell),Tetanus Vaccine 0.5 ML SDV IM ONE (12:33)
== END 2019-03-27 12:32 ==
LOC: DL.ED 11:49
DX: S06.5X1A Traumatic subdural hemorrhage with loss of consciousness of 30 minutes or less, initial encounter (principal); S06.6X1A Traumatic subarachnoid hemorrhage with loss of consciousness of 30 minutes or less, initial encounter; R40.2412 Glasgow coma scale score 13-15, at arrival to emergency department; E11.42 Type 2 diabetes mellitus with diabetic polyneuropathy; I10 Essential (primary) hypertension; I25.2 Old myocardial infarction; Z88.5 Allergy status to narcotic agent; Z88.2 Allergy status to sulfonamides; Z91.048 Other nonmedicinal substance allergy status; Z79.82 Long term (current) use of aspirin; Z79.899 Other long term (current) drug therapy; Z23 Encounter for immunization; V03.00XA Pedestrian on foot injured in collision with car, pick-up truck or van in nontraffic accident, initial encounter; Y92.481 Parking lot as the place of occurrence of the external cause
CPT/HCPCS: 36415; 70450; 72125; 80053; 82150; 83690; 84484; 85025; 85610; 85730; 90471; 90715; 96361; 96374; 99285; G0480; J2405; J7120

== ENCOUNTER 2023-06-27 17:21 | Emergency (ER) | payer MEDICARE, OTHER ==
[2023-06-27 18:10] VITALS: BP 169/59; PULSE 72
[2023-06-27 18:36] LABS: BASOPHILS PERCENT AUTO 0.4 % (0.0-1.0); HEMATOCRIT 41.2 % (37.0-47.0); LYMPHOCYTES PERCENT AUTO 33.6 % (20.5-50.1); MEAN CORPUSCULAR HEMOGLOBIN 29.8 pg (27.0-34.0); MEAN CORPUSCULAR HGB CONC 31.6 g/dL (33.0-35.0); MEAN CORPUSCULAR VOLUME 94.5 fL (80-100); PLATELET COUNT,PLT 377 10^3/uL (150-450); RED BLOOD CELL COUNT 4.36 10^6/uL (4.2-5.4)
[2023-06-27 18:40] LABS: APPEARANCE,URINE CLEAR (CLEAR); BILIRUBIN,URINE NEGATIVE (NEGATIVE); COLOR,URINE YELLOW (YELLOW); GLUCOSE,URINE NEGATIVE (NEGATIVE); KETONES,URINE NEGATIVE (NEGATIVE); LEUKOCYTE ESTERASE,URINE SMALL (NEGATIVE); NITRITE,URINE NEGATIVE (NEGATIVE); OCCULT BLOOD,URINE TRACE-LYSED (NEGATIVE); PH,URINE 6.5 (5.0-9.0); PROTEIN,URINE NEGATIVE (NEGATIVE); UROBILINOGEN,URINE 0.2 mg/dL (0.2-1.0)
[2023-06-27 18:48] LABS: BACTERIA,URINE FEW /HPF (0-FEW/HPF); EPITHELIAL CELLS,URINE FEW /HPF (NOT SEEN); MUCUS,URINE RARE /LPF (NOT SEEN); RBC,URINE 0-5 /HPF (0-5)
[2023-06-27 18:49] LABS: AMORPHOUS SEDIMENT,URINE RARE /HPF (NOT SEEN)
[2023-06-27 18:55] LABS: PROTHROMBIN TIME 9.9 SEC (9.0-12.0); PTT,PARTIAL THROMBOPLSTIN TIME 26.3 SEC (22.0-34.0)
[2023-06-27 19:04] LABS: A/G RATIO 0.9; ALBUMIN 3.5 g/dL (3.4-5.0); ANION GAP 13.1 mEq/L (7-13); BUN/CREATININE RATIO 25.4 (No establ ref range); CALCIUM 8.7 mg/dL (8.5-10.1); CREATININE 0.59 mg/dL (0.55-1.02); EST CRCL DRUG DOSING (CG) 47.34 mL/min; MAGNESIUM 2.1 mg/dL (1.8-2.4); POTASSIUM,K 4.1 mmol/L (3.5-5.1); PROTEIN TOTAL,TP 7.2 g/dL (6.4-8.2); TSH ULTRASENSITIVE 2.25 uIU/mL (0.36-3.74)
[2023-06-27] MEDS: Sodium Chloride 0.9% 10 ML Syringe FLUSH PRN (19:16)
[2023-06-27] MEDS: cefTRIAXone 1 GM Vial IVPUSH ONE (19:17)
[2023-06-27 19:19] LABS: CORONAVIRUS COVID-19 NAA NEGATIVE (NEGATIVE); INFLUENZA A NAA NEGATIVE (NEGATIVE); INFLUENZA B NAA NEGATIVE (NEGATIVE); RESPIRATORY SYNCYTIAL VIR NAA NEGATIVE (NEGATIVE)
== END 2023-06-27 19:42 | disposition home or self-care (01) ==
LOC: DL.ED 17:21
DX: N30.01 Acute cystitis with hematuria (principal); I10 Essential (primary) hypertension; I25.2 Old myocardial infarction; E11.9 Type 2 diabetes mellitus without complications; Z79.899 Other long term (current) drug therapy; Z88.2 Allergy status to sulfonamides; Z88.5 Allergy status to narcotic agent; Z91.048 Other nonmedicinal substance allergy status
CPT/HCPCS: 0241U; 36415; 80053; 81001; 83735; 84443; 84484; 85025; 85610; 85730; 87086; 93005; 93010; 96374; 99284; 99285-25; J0696; J3490

== ENCOUNTER 2023-11-19 22:32 | Observation (INO) | payer MEDICARE, OTHER ==
[2023-11-20] MEDS: Ondansetron 4 MG/2 ML SDV IVPUSH ONE (00:21)
[2023-11-20] MEDS: Metoclopramide 10 MG/2 ML SDV IVPUSH ONE (00:21)
[2023-11-20 00:22] LABS: BASOPHILS PERCENT AUTO 0.2 % (0.0-1.0); EOSINOPHILS PERCENT AUTO 1.4 % (1.0-3.0); HEMATOCRIT 42.6 % (37.0-47.0); HEMOGLOBIN 13.7 g/dL (12.0-16.0); LYMPHOCYTES PERCENT AUTO 18.7 % (20.5-50.1); MEAN CORPUSCULAR HEMOGLOBIN 30.4 pg (27.0-34.0); MEAN CORPUSCULAR HGB CONC 32.2 g/dL (33.0-35.0); MEAN CORPUSCULAR VOLUME 94.5 fL (80-100); MONOCYTES PERCENT AUTO 10.2 % (2-8); NEUTROPHILS PERCENT AUTO 69.5 % (42.2-75.2); PLATELET COUNT,PLT 368 10^3/uL (150-450); RED BLOOD CELL COUNT 4.51 10^6/uL (4.2-5.4); WHITE BLOOD CELL COUNT,WBC 10.7 10^3/uL (5.0-10.0)
[2023-11-20] MEDS: Ketorolac 30 MG/ML SDV IVPUSH ONE (00:28)
[2023-11-20] MEDS: Sodium Chloride 0.9% 10 ML Syringe FLUSH PRN (00:29)
[2023-11-20 00:36] LABS: ANION GAP 10.9 mEq/L (7-13); CALCIUM 8.9 mg/dL (8.5-10.1); CREATININE 0.52 mg/dL (0.55-1.02); EST CRCL DRUG DOSING (CG) 53.71 mL/min; POTASSIUM,K 4.9 mmol/L (3.5-5.1)
[2023-11-20 00:54] LABS: APPEARANCE,URINE CLEAR (CLEAR); BILIRUBIN,URINE NEGATIVE (NEGATIVE); COLOR,URINE YELLOW (YELLOW); GLUCOSE,URINE NEGATIVE (NEGATIVE); KETONES,URINE 40 (NEGATIVE); LEUKOCYTE ESTERASE,URINE SMALL (NEGATIVE); NITRITE,URINE NEGATIVE (NEGATIVE); OCCULT BLOOD,URINE TRACE-INTACT (NEGATIVE); PROTEIN,URINE NEGATIVE (NEGATIVE); UROBILINOGEN,URINE 0.2 mg/dL (0.2-1.0)
[2023-11-20 01:01] LABS: EPITHELIAL CELLS,URINE FEW /HPF (NOT SEEN); RBC,URINE 0-5 /HPF (0-5)
[2023-11-20 01:02] LABS: AMORPHOUS SEDIMENT,URINE FEW /HPF (NOT SEEN); BACTERIA,URINE FEW /HPF (0-FEW/HPF); MUCUS,URINE FEW /LPF (NOT SEEN)
[2023-11-20] MEDS: Sodium Chloride 0.9% 500 ML IV ONE (01:02)
[2023-11-20] MEDS: Iopamidol 755 Mg/ML 100 ML Bottle IVPUSH ONE ×2 (01:46→19:51)
[2023-11-20] MEDS: Ondansetron 4 MG/2 ML SDV IVPUSH PRN (06:26)
[2023-11-20] MEDS: Sodium Chloride 0.9% 1,000 ML IV SCH (06:28)
[2023-11-20] MEDS: Morphine 2 MG/ML SYRINGE IVPUSH PRN (06:29)
[2023-11-20] MEDS ORDERED: Glucagon,Human Recombinant 1 MG Vial IM PRN (13:34)
[2023-11-20] MEDS ORDERED: 50% Dextrose in Water 50 ML Syringe IVPUSH PRN (13:34)
[2023-11-20] MEDS ORDERED: Insulin Lispro 100 Units/ML 3 ML Vial SUBCUT SCH (17:00)
[2023-11-20] MEDS: Dextrose 5%-0.9% NaCl 1,000 ML IV SCH (18:01)
[2023-11-20] MEDS ORDERED: Nitroglycerin 0.4 MG Tab.SL SL PRN (19:24)
[2023-11-20] MEDS: Atenolol 25 MG Tab PO SCH (20:37)
[2023-11-20] MEDS: Losartan 25 MG Tab PO SCH (20:38)
[2023-11-20] MEDS: Scopalamine 1mg/3day Transdermal Patch TOP SCH (20:38)
[2023-11-20] MEDS: Insulin Lispro 100 Units/ML 3 ML Vial SUBCUT SCH (23:31)
[2023-11-21] MEDS ORDERED: Nitroglycerin 0.4 MG Tab.SL SL SCH (09:00)
[2023-11-21] MEDS: Scopalamine 1mg/3day Transdermal Patch TOP SCH (11:56)
[2023-11-21] MEDS: Losartan 25 MG Tab PO SCH (20:00)
[2023-11-22] MEDS: Insulin Lispro 100 Units/ML 3 ML Vial SUBCUT SCH (08:01)
[2023-11-22 09:00] LABS: BASOPHILS PERCENT AUTO 0.6 % (0.0-1.0); EOSINOPHILS PERCENT AUTO 5.3 % (1.0-3.0); HEMOGLOBIN 11.6 g/dL (12.0-16.0); LYMPHOCYTES PERCENT AUTO 25.2 % (20.5-50.1); MEAN CORPUSCULAR HEMOGLOBIN 30.4 pg (27.0-34.0); MEAN CORPUSCULAR HGB CONC 31.4 g/dL (33.0-35.0); MEAN CORPUSCULAR VOLUME 96.9 fL (80-100); MONOCYTES PERCENT AUTO 13.5 % (2-8); NEUTROPHILS PERCENT AUTO 55.4 % (42.2-75.2); PLATELET COUNT,PLT 312 10^3/uL (150-450); RED BLOOD CELL COUNT 3.82 10^6/uL (4.2-5.4); WHITE BLOOD CELL COUNT,WBC 7.1 10^3/uL (5.0-10.0)
[2023-11-22 09:35] LABS: ALBUMIN 2.7 g/dL (3.4-5.0); ANION GAP 10.2 mEq/L (7-13); BILIRUBIN TOTAL 0.8 mg/dL (0.2-1.0); BUN/CREATININE RATIO 12.3 (No establ ref range); CALCIUM 8.2 mg/dL (8.5-10.1); CREATININE 0.65 mg/dL (0.55-1.02); EST CRCL DRUG DOSING (CG) 42.97 mL/min; POTASSIUM,K 3.2 mmol/L (3.5-5.1); PROTEIN TOTAL,TP 5.7 g/dL (6.4-8.2)
[2023-11-22 09:37] LABS: A/G RATIO 0.9
[2023-11-22 10:19] VITALS: BP 162/55; PULSE 71
[2023-11-22] MEDS ORDERED: Atenolol 25 MG Tab PO SCH (21:00)
[2023-11-23 05:41] LABS: URINE AMYLASE 983 U/L (16-491)
== END 2023-11-22 10:09 | disposition home or self-care (01) ==
LOC: DL.ED 22:32 → DL.MS 11-20 04:25
PROVIDERS: ADMIT Internal Medicine; ATTEND Internal Medicine
DX: K56.609 Unspecified intestinal obstruction, unspecified as to partial versus complete obstruction (principal); I10 Essential (primary) hypertension; E11.9 Type 2 diabetes mellitus without complications; I25.10 Atherosclerotic heart disease of native coronary artery without angina pectoris; E07.9 Disorder of thyroid, unspecified; E86.0 Dehydration; R10.84 Generalized abdominal pain; Z79.899 Other long term (current) drug therapy; Z88.2 Allergy status to sulfonamides; Z88.8 Allergy status to other drugs, medicaments and biological substances
CPT/HCPCS: 36415; 71260; 74177; 80048; 80053; 81001; 82150; 82947; 83880; 84484; 85025; 85379; 87086; 87088; 87186; 93005; 96361; 96374; 96375; 96376; 99223; 99285-25; A9270-GY; G0378; J1885; J2270; J2405; J2765; J3490; J7030; J7042; Q9967

== ENCOUNTER 2024-06-05 16:58 | Emergency (ER) | payer MEDICARE, OTHER ==
[2024-06-05 18:14] VITALS: BP 161/58; PULSE 64
== END 2024-06-05 18:49 | disposition home or self-care (01) ==
LOC: DL.ED 16:58
DX: R33.9 Retention of urine, unspecified (principal); I10 Essential (primary) hypertension; I25.2 Old myocardial infarction; E11.9 Type 2 diabetes mellitus without complications; Z88.5 Allergy status to narcotic agent; Z88.2 Allergy status to sulfonamides; Z91.048 Other nonmedicinal substance allergy status; Z79.899 Other long term (current) drug therapy; Z79.84 Long term (current) use of oral hypoglycemic drugs; Z90.49 Acquired absence of other specified parts of digestive tract; Z95.5 Presence of coronary angioplasty implant and graft; Z86.73 Personal history of transient ischemic attack (TIA), and cerebral infarction without residual deficits
CPT/HCPCS: 51702; 51798; 99283-25

== ENCOUNTER 2024-06-09 10:26 | Emergency (ER) | payer MEDICARE, OTHER ==
[2024-06-09 10:49] VITALS: BP 182/52; PULSE 67
== END 2024-06-09 11:28 | disposition home or self-care (01) ==
LOC: DL.ED 10:26
DX: Z46.6 Encounter for fitting and adjustment of urinary device (principal); I10 Essential (primary) hypertension; I25.2 Old myocardial infarction; E11.9 Type 2 diabetes mellitus without complications; Z95.5 Presence of coronary angioplasty implant and graft; Z90.49 Acquired absence of other specified parts of digestive tract; Z79.899 Other long term (current) drug therapy; Z79.84 Long term (current) use of oral hypoglycemic drugs; Z88.8 Allergy status to other drugs, medicaments and biological substances; Z88.2 Allergy status to sulfonamides; Z88.5 Allergy status to narcotic agent
CPT/HCPCS: 99283